=== PATIENT | male | born 1965 | race Caucasian/White ===

== ENCOUNTER → 2017-03-26 | Outpatient (CLI) | payer OTHER ==
[2017-03-26 11:19] LABS: BLOOD UREA NITROGEN 21 mg/dl (7-18); CALCIUM 7.8 mg/dl (8.5-10.1); CARBON DIOXIDE 24 mmol/L (21-32); CREATININE 1.19 mg/dl (0.60-1.40); GLUCOSE 113 mg/dl (70-99); POTASSIUM 4.2 mmol/L (3.5-5.1); SODIUM 134 mmol/L (136-145)
== END | disposition home or self-care (01) ==
LOC: C.LAB1850 09:44
PROVIDERS: ATTEND Physician Assistant
DX: I35.1 Nonrheumatic aortic (valve) insufficiency (principal)

== ENCOUNTER 2017-04-04 20:39 | Inpatient (IN) | payer OTHER ==
[~2017-04-04] VITALS: Ht 177.8 cm; Wt 84.5 kg
[2017-04-04 21:11] LABS: BASO % 0.2 %; BASO ABS # 0.03 K/uL (0-0.2); EOS % 0.1 %; EOS ABS # 0.01 K/uL (0-0.5); HEMATOCRIT 32.4 % (42-52); HEMOGLOBIN 10.9 g/dL (14.0-18.0); LYMPH % 4.9 %; LYMPH ABS # 0.87 K/uL (1.2-3.4); MEAN CELL VOLUME 90.8 fL (80-100); MEAN CORPUSCULAR HEMOGLOBIN 30.5 pg (25-34); MEAN CORPUSCULAR HGB CONC 33.6 g/dl (32-36); MEAN PLATELET VOLUME 10.4 fL (7.4-10.4); MONO % 3.6 %; MONO ABS # 0.64 K/uL (0.11-0.59); NEUT % 90.6 %; NEUT ABS # 16.27 K/uL (1.4-6.5); PLATELET COUNT 372 K/uL (130-400); RED CELL DISTRIBUTION WIDTH CV 14.1 % (11.5-14.5); RED CELL DISTRIBUTION WIDTH SD 46.3 fL (36.4-46.3); WHITE BLOOD COUNT 17.92 K/uL (4.8-10.8)
--- NOTE | 2017-04-04 21:15 | EMERGENCY ROOM VISIT NOTE ---
History Report prepared by Roman: Gonzalo Martínez Under the Supervision of: Dr. Melvin Cobos M.D. First contact with patient: 20:56 Chief Complaint: SHORTNESS OF BREATH Stated Complaint: SOB History of Present Illness The patient is a 51 year old male who presents to the Emergency Room with complaints of worsening shortness of breath that he has been experiencing for the past 1.5 days. His shortness of breath is present with exertion, and he noted one episode where he walked up the steps and became unusually short of breath yesterday. He did not become diaphoretic or nauseous. He also denies any associated fevers or cough. The patient states that he went to [employer] two weeks ago secondary to feeling generally unwell. On this visit he received a cardiac workup and was instructed to follow-up with a compressor station operator. He met with a compressor station operator 9 days ago who stated that he may need a valve repair or replacement, but he had time to decide what he wanted to do. Over the past couple of weeks he has been going through his normally daily routine without any issues. He is aware that he has had a murmur for many years, but has no history of respiratory disease or diabetes. 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 A total of 10 systems reviewed and were otherwise negative. Past Medical & Surgical Medical Problems: (1) Bicuspid aortic valve determined by imaging (2) Dilated aortic root (3) Murmur, cardiac Murmur, cardiac No prior history of cardiac disease. Social History Drug Use: none Marital Status: Housing Status: lives with significant other Occupation Status: employed Current/Historical Medications No Active Prescriptions or Reported Meds Allergies Coded Allergies: No Known Allergies (Unverified , 04/04/17) Physical Exam Vital Signs Date Time Temp Pulse Resp B/P (MAP) Pulse Ox O2 Delivery O2 Flow Rate FiO2 04/04/17 23:01 105 18 93/39 100 Nasal Cannula 2.0 04/04/17 22:31 94 22 83/35 100 Nasal Cannula 2.0 04/04/17 22:12 94 20 83/43 95 Nasal Cannula 2.0 04/04/17 21:36 95 20 93/42 97 Nasal Cannula 2.0 04/04/17 21:14 96 Nasal Cannula 2.0 04/04/17 20:51 98 04/04/17 20:49 96 Nasal Cannula 2.0 04/04/17 20:40 36.8 104 20 103/47 92 Room Air 04/04/17 20:40 92 Room Air Physical Exam GENERAL: Patient is in no acute distress. HEENT: No acute trauma, normocephalic atraumatic, mucous membranes moist, no nasal congestion, no scleral icterus. NECK: No stridor, no adenopathy, no meningismus, trachea is midline. LUNGS: Breath sounds are diminished bilaterally with bilateral crackles. HEART: There is a 3/6 systolic murmur with a regular rhythm. There is mild tachycardia. ABDOMEN: Soft, nontender, bowel sounds positive, no hernias, no peritonitis. EXTREMITIES: No cyanosis, Mild pedal edema bilaterally. Full range of motion of all the joints without pain or difficulty, no signs for acute trauma. NEUROLOGIC: Oriented x 3, no acute motor or sensory deficits, no focal weakness. SKIN: No rash, no jaundice, no diaphoresis. Medical Decision & Procedures ER Provider Diagnostic Interpretation: Radiology results as stated below per my review and radiologist interpretation: CHEST ONE VIEW PORTABLE HISTORY: EVALUATE RESPIRATORY DISTRESS.DYSPNEA COMPARISON: None. FINDINGS: The heart is enlarged. Small bilateral pleural effusions. Interstitial and vascular thickening most pronounced at the lung bases. This is consistent with mild pulmonary edema. No pneumothorax. IMPRESSION: Cardiomegaly with mild pulmonary edema and small bilateral pleural effusions. Electronically signed by: Hector Hinkle M.D. 04/04/2017 9:57 PM Dictated Date/Time: 04/04/2017 9:42 PM Laboratory Results Test 04/04/17 20:56 Erythrocyte Sedimentation Rate 53 mm/hr (0-14) Prothrombin Time 12.1 SECONDS (9.0-12.0) Prothromb Time International Ratio 1.2 (0.9-1.1) Activated Partial Thromboplast Time 27.3 SECONDS (21.0-31.0) Partial Thromboplastin Ratio 1.1 Pro-B-Type Natriuretic Peptide > 04713 pg/ml (0-900) Monoscreen NEG (NEG) Laboratory results reviewed by me. Medications Administered Medications (Trade) Dose Ordered Sig/Jj Route Start Time Stop Time Status Last Admin Dose Admin Furosemide (Lasix Inj) 20 mg NOW STAT IV 04/04/17 21:31 04/04/17 21:32 DC 04/04/17 21:40 20 MG Ceftriaxone Sodium 2000 mg/ Dextrose 70 ml @ 100 mls/hr ONE STAT IV 04/04/17 21:51 04/04/17 22:32 DC 04/04/17 22:08 100 MLS/HR Albumin Human (Albumin 25%) 25 gm NOW STAT IV 04/04/17 22:48 04/04/17 22:49 DC 04/04/17 22:48 12.5 GM Albumin Human (Albumin 25%) 12.5 gm STK-MED ONCE IV 04/04/17 22:30 04/04/17 22:31 DC 04/04/17 22:51 12.5 GM Vancomycin HCl 2500 mg/Sodium Chloride 550 ml @ 200 mls/hr NOW STAT IV 04/04/17 22:53 04/05/17 01:37 DC 04/04/17 23:41 200 MLS/HR ECG Indication: SOB/dyspnea Rate (beats per minute): 98 Rhythm: sinus rhythm Findings: 1st degree AV block, ST depression (lateral), other (Old anterior spetal infarct, no PVCs ) ED Course 2056: The patient was evaluated in room B4. A complete history and physical exam was performed. 2130: Ordered Lasix 20 mg IV. 2143: I discussed the case with Dr. Nazario - Cardiology. He suggests diaeresis for the patient slowly and administering antibiotic. 2150: Ordered Cetriaxone 70 mL @ 100 mL/hr IV. 7: I discussed the case with Dr. Faulkner - On-Call Manager Social Services. He states that the patient can be taken to the ICU to be evaluated. 8: I discussed the case with Dr. Hair - [facility] Hospitalist. He will evaluate the patient before he is taken to the floor. Medical Decision Differential Diagnosis includes; Heart failure, endocarditis, valvular insufficiency, valvular stenosis, flu- like illness, anemia, electrolyte imbalance, myocardial infarction. There is a significant leukocytosis at 17,000, this could be consistent with infection or with the stress of the situation. No worrisome anemia. Sedimentation rate was elevated at 50, this makes infection/inflammation more likely I suppose. No significant electrolyte abnormality or kidney failure. No hepatitis. No worrisome coagulopathy. BNP was quite elevated consistent with fluid overload. Chest film shows evidence for CHF. EKG showed a sinus rhythm with a first-degree AV block and a possible old anterior septal infarct. There was some ST depression in the lateral leads. Cardiac troponin was elevated consistent with possible cardiac injury. Blood cultures are pending. The patient presents dyspneic. He has a murmur on exam and had recently seen a compressor station operator for this murmur and there had been some discussion regarding valvular disease and the need for an operation. With him feeling poorly for a while as if he may have had the flu, I am concerned about the possibility of endocarditis. The patient received 2 g of IV ceftriaxone. He also received a small dose of IV Lasix to help with diuresis. I spoke with the on-call compressor station operator, I talked with the on-call potato inspector. I did speak with the on-call hospitalist as well. Patient is aware of his findings, case management has been involved. The patient will be brought into the hospital into the intensive care unit. He will likely eventually require transfer once more stable. Right now, he does not feel short of breath, he has no chest pain. His blood pressure is slightly low although he is asymptomatic. Medication Reconcilliation Current Medication List: was personally reviewed by me Blood Pressure Screening Patient's blood pressure: Low blood pressure Referred to potato inspector, hospitalist Consults Time Called: 2140 Consulting Physician: Dr. Nazario - Cardiology Returned Call: 2143 I discussed the case with Dr. Mansi Styles. He suggests diaeresis for the patient slowly and administering antibiotic. Additional Consults: Time Called: 2154 Consulted Physician: Dr. Faulkner - On-Call Intensivis Returned Call: 2156 Additional Comments: I discussed the case with Dr. Faulkner - On-Call Manager Social Services. He states that the patient can be taken to the ICU to be evaluated. Time Called: 2213 Consulted Physician: Dr. Laxmi ABRAHAM Hospitalist Returned Call: 2217 Additional Comments: I discussed the case with Dr. Laxmi ABRAHAM Hospitalist. He will evaluate the patient before he is taken to the floor. Impression Primary Impression: Congestive heart failure Additional Impression: Elevated troponin Critical Care I have personally spent greater than 40 minutes of critical care time in the direct management of this patient. This includes bedside care, interpretation of diagnostic studies, and testing, discussion with consultants, patient, and family members, and other required patient management activities. This 40 minutes is in excess of all separately billable procedures. Scribe Attestation The scribe's documentation has been prepared under my direction and personally reviewed by me in its entirety. I confirm that the note above accurately reflects all work, treatment, procedures, and medical decision making performed by me. Departure Information Dispostion Being Evaluated By Hospitalist (Manager Social Services, Dr. Faulkner ) Prescriptions No Active Prescriptions or Reported Meds Referrals No Doctor, Assigned (PCP) Patient Instructions My [facility] Problem Qualifiers
[2017-04-04 21:20] LABS: INR 1.2 (0.9-1.1); PTT PATIENT 27.3 SECONDS (21.0-31.0)
[2017-04-04 21:29] LABS: ALBUMIN 2.4 gm/dl (3.4-5.0); ALT/SGPT 66 U/L (12-78); BLOOD UREA NITROGEN 30 mg/dl (7-18); CALCIUM 7.8 mg/dl (8.5-10.1); CARBON DIOXIDE 23 mmol/L (21-32); CREATININE 1.31 mg/dl (0.60-1.40); GLUCOSE 146 mg/dl (70-99); POTASSIUM 4.5 mmol/L (3.5-5.1); SODIUM 130 mmol/L (136-145)
[2017-04-04] MEDS ORDERED: FUROSEMIDE 40 MG/4 ML VIAL IV STA (21:31)
[2017-04-04 21:38] LABS: ALKALINE PHOSPHATASE 89 U/L (45-117); AST/SGOT 40 U/L (15-37); TOTAL PROTEIN 7.1 gm/dl (6.4-8.2)
[2017-04-04] MEDS ORDERED: CEFTRIAXONE SOD INJ 2,000 MG in DEXTROSE 5% 50ML 50 ML IV STA (21:51)
--- NOTE | 2017-04-04 21:58 | DIAGNOSTIC IMAGING REPORT ---
CHEST ONE VIEW PORTABLE HISTORY: EVALUATE RESPIRATORY DISTRESS.DYSPNEA COMPARISON: None. FINDINGS: The heart is enlarged. Small bilateral pleural effusions. Interstitial and vascular thickening most pronounced at the lung bases. This is consistent with mild pulmonary edema. No pneumothorax. IMPRESSION: Cardiomegaly with mild pulmonary edema and small bilateral pleural effusions. Electronically signed by: Hector Hinkle M.D. 04/04/2017 9:57 PM Dictated Date/Time: 04/04/2017 9:42 PM
[2017-04-04] MEDS ORDERED: ALBUMIN HUMAN 25% 12.5 GM/50 ML VIAL IV ONE (22:30)
--- NOTE | 2017-04-04 22:32 | History and Physical ---
History & Physical Date & Time of Service: Apr 04, 2017 at 22:21 Chief Complaint: SOB Primary Care Physician: No Doctor, Assigned History of Present Illness Source: patient, family 51 year old males presented to ED today with acute onset of dyspnea. Patient has been feeling unwell for nearly 6 weeks now - namely low energy/ weakness and a cough. This was initially attributed to a cold that others in the household were also experiencing. However, unlike his family, the patient did not feel better with time, and went to see urgent care ~3 weeks ago, at which time a murmur was appreciated. Patient was referred for further work up, and cardiology was consulted after an echocardiogram revealed: severely dilated left ventricle, a functionally bicuspid aortic valve with aortic stenosis and severe aortic regurgitation, and aortic root dilation. Patient saw editor at large , Dr. Gomez for a cardiology consultation, during which cardiac catheterization and EDDY for staging for possible aortic valve replacement was discussed. The patient was overwhelmed with the discussion and declined further evaluation until he was able to settle things at work. He was agreeable to CTA chest, but this has not been performed. As patient was asymptomatic at the time , follow up appointment was arranged for 1 month for further discussion. This afternoon, patient became acutely dyspneic, and came to the ED for evaluation. He describes his symptoms as an inability to catch his breath. He denies concurrent headache, dizziness, change in vision, chest pain, palpitations, heart racing, nausea or diaphoresis. He also denies URTI symptoms and said his cough has not been bothering him over the last few days. He does note that he has felt progressively weaker/fatigued with decreased activity tolerance, he has had diminished appetite for weeks (although he is able to tolerate PO intake), and that he has had leg swelling for the past week, as well as orthopnea. He denies fevers or chills, abdominal pain or vomiting, urinary symptoms or changes in bowel habits. He has not had any falls, no trauma to the chest, no recent travel, denies illicit drug use, and does not use oxygen at baseline. ROS is unremarkable except as noted above. Past Medical/Surgical History Medical Problems: (1) Murmur, cardiac Status: Chronic Family History Father CA with CABG x2 at age 50s Social History Smoking Status: Never Smoker Smokeless Tobacco Use: No Alcohol Use: none Drug Use: none Marital Status: Housing status: lives with family Occupational Status: employed Immunizations History of Influenza Vaccine: Unknown History of Tetanus Vaccine?: Unknown History of Pneumococcal: Unknown History of Hepatitis B Vaccine: Unknown Multi-Drug Resistant Organisms History of MDRO: No Allergies Coded Allergies: No Known Allergies (Unverified , 04/04/17) Home Medications No Active Prescriptions or Reported Meds Physical Exam Vital Signs Date Time Temp Pulse Resp B/P (MAP) Pulse Ox O2 Delivery O2 Flow Rate FiO2 04/04/17 22:12 94 20 83/43 95 Nasal Cannula 2.0 04/04/17 21:36 95 20 93/42 97 Nasal Cannula 2.0 04/04/17 21:14 96 Nasal Cannula 2.0 04/04/17 20:51 98 04/04/17 20:49 96 Nasal Cannula 2.0 04/04/17 20:40 36.8 104 20 103/47 92 Room Air 04/04/17 20:40 92 Room Air General Appearance: WD/WN, + mild distress Head: normocephalic, atraumatic Eyes: normal inspection ENT: hearing grossly normal, pharynx normal, + pertinent finding (NC in situ. Dry mucous membranes) Neck: supple, no adenopathy, + JVD Respiratory/Chest: no accessory muscle use, + respiratory distress (mild, although patient denies discomfort with O2), + decreased breath sounds ( bibasilar), + crackles, + pertinent finding (shallow breathing) Cardiovascular: regular rate, rhythm, normal peripheral pulses, + tachycardia, + systolic murmur Abdomen/GI: normal bowel sounds, non tender, soft Back: no CVA tenderness Extremities/Musculoskelatal: no calf tenderness, + pedal edema, + swelling (+1- 2 pitting edema) Neurologic/Psych: alert, normal mood/affect, oriented x 3 Skin: normal color, warm/dry, no rash Diagnostics Laboratory Results Results Past 24 Hours Test 04/04/17 20:56 Range/Units White Blood Count 17.92 4.8-10.8 K/uL Red Blood Count 3.57 4.7-6.1 M/uL Hemoglobin 10.9 14.0-18.0 g/dL Hematocrit 32.4 42-52 % Mean Corpuscular Volume 90.8 80-100 fL Mean Corpuscular Hemoglobin 30.5 25-34 pg Mean Corpuscular Hemoglobin Concent 33.6 32-36 g/dl Platelet Count 372 130-400 K/uL Mean Platelet Volume 10.4 7.4-10.4 fL Neutrophils (%) (Auto) 90.6 % Lymphocytes (%) (Auto) 4.9 % Monocytes (%) (Auto) 3.6 % Eosinophils (%) (Auto) 0.1 % Basophils (%) (Auto) 0.2 % Neutrophils # (Auto) 16.27 1.4-6.5 K/uL Lymphocytes # (Auto) 0.87 1.2-3.4 K/uL Monocytes # (Auto) 0.64 0.11-0.59 K/uL Eosinophils # (Auto) 0.01 0-0.5 K/uL Basophils # (Auto) 0.03 0-0.2 K/uL RDW Standard Deviation 46.3 36.4-46.3 fL RDW Coefficient of Variation 14.1 11.5-14.5 % Immature Granulocyte % (Auto) 0.6 % Immature Granulocyte # (Auto) 0.10 0.00-0.02 K/uL Erythrocyte Sedimentation Rate 53 0-14 mm/hr Prothrombin Time 12.1 9.0-12.0 SECONDS Prothromb Time International Ratio 1.2 0.9-1.1 Activated Partial Thromboplast Time 27.3 21.0-31.0 SECONDS Partial Thromboplastin Ratio 1.1 Sodium Level 130 136-145 mmol/L Potassium Level 4.5 3.5-5.1 mmol/L Chloride Level 99 98-107 mmol/L Carbon Dioxide Level 23 21-32 mmol/L Anion Gap 8.0 3-11 mmol/L Blood Urea Nitrogen 30 7-18 mg/dl Creatinine 1.31 0.60-1.40 mg/dl Est Creatinine Clear Calc Drug Dose 72.9 ml/min Estimated GFR () 71.5 Estimated GFR (Non- 61.7 BUN/Creatinine Ratio 22.6 10-20 Random Glucose 146 70-99 mg/dl Calcium Level 7.8 8.5-10.1 mg/dl Magnesium Level 2.5 1.8-2.4 mg/dl Total Bilirubin 0.9 0.2-1 mg/dl Aspartate Amino Transf (AST/SGOT) 40 15-37 U/L Alanine Aminotransferase (ALT/SGPT) 66 12-78 U/L Alkaline Phosphatase 89 45-117 U/L Troponin I 1.060 0-0.045 ng/ml Pro-B-Type Natriuretic Peptide > 72804 0-900 pg/ml Total Protein 7.1 6.4-8.2 gm/dl Albumin 2.4 3.4-5.0 gm/dl Globulin 4.7 2.5-4.0 gm/dl Albumin/Globulin Ratio 0.5 0.9-2 Monoscreen NEG NEG Microbiology Results 04/04/17 Blood Culture, Received Pending 04/04/17 Blood Culture, Received Pending Diagnostic Radiology CHEST ONE VIEW PORTABLE HISTORY: EVALUATE RESPIRATORY DISTRESS.DYSPNEA COMPARISON: None. FINDINGS: The heart is enlarged. Small bilateral pleural effusions. Interstitial and vascular thickening most pronounced at the lung bases. This is consistent with mild pulmonary edema. No pneumothorax. IMPRESSION: Cardiomegaly with mild pulmonary edema and small bilateral pleural effusions. CT Dissection work up Stat rad: No thoracic aortic dissection or aneurysm, no PE, moderate bilateral pleural effusions with mild pulmonary congestion, trace pericardial effusion EKG Sinus rhythm with 1st degree A-V block Left axis deviation Anteroseptal infarct , age undetermined Abnormal ECG HR 98, QTc 456 Impression Assessment and Plan 51 year old male with functionally bicuspid aortic valve with severe aortic regurgitation and aortic root aneurysm admitted for dyspnea and pulmonary edema , and likely secondary to acute decompensated heart failure in the setting of known Acute congested heart failure with hypoxia - as noted on imaging and indicated by BNP >35,000 - Received IV furosemide 20mg in ED, but diuresis worsened hypotension. Subsequently given 4 bags of 12.5mg albumin to assist with gentle diuresis while maintaining BP - O2 via nasal cannula, wean as tolerated to maintain sats >94% - Cardiology consulted - Daily weights, I/Os, low salt diet once no longer NPO - NO nitro given patient preload dependent Concern for sepsis secondary to possible endocarditis given patient has murmur, is hypotensive - Trace blood cultures - Vancomycin, ceftriaxone, levofloxacin - Cardiology consulted - Flu swabs ordered - Patient NPO for possible cardiac procedure - Trend CBC Elevated troponin - Serial troponin - Heparin drip started upon rule out of dissection - ECHO ordered - EKG PRN chest pain GERD ppx - Pantoprazole VTE ppx - SCDs - Heparin as above Attending addendum: I have physically seen this patient, have supervised the medical residents activities, and agree with the H&P unless as otherwise noted. Assessment and Plan: Acute on Chronic CHF with hypoxia/SBE/elevated troponin-- The patient will be admitted to the intensive care unit. Placed on vancomycin IV, ceftriaxone IV and Levaquin IV. Follow blood cultures and sensitivities Heparin drip standard concentration without bolus per protocol Order 2D echocardiogram with Dopplers Consult cardiology Patient may require a EDDY Patient may require pressors if return of hypotension. Follow serial laboratories including CBC with differential, chemistry profile, PT/PTT, cardiac enzymes. Remainder of care per ICU team Level of Care Critical Care Advanced Directives Existing Advance Directive: No Existing Living Will: No Existing Power of Chocolate Maker: No Existing Health Care Proxy: Yes (, Olimpia) Resuscitation Status FULL RESUSCITATION VTE Prophylaxis VTE Risk Assessment Done? Y/N: Yes Risk Level: Moderate Given or contraindicated: Other Anticoagulation (Heparin drip), SCD's Note Total Time: Critical Care 30 - 74 minutes Resident Tracking Resident Involvement: Resident Care Provided Care Provided: Adult Hospital Medicine
[2017-04-04] MEDS ORDERED: ALBUMIN HUMAN 25% 12.5 GM/50 ML VIAL IV STA ×2 (22:48→23:28)
[2017-04-04] MEDS ORDERED: VANCOMYCIN INJ 1,000 MG in SODIUM CHLORIDE 0.9% 250ML 250 ML IV STA (22:49)
[2017-04-04] MEDS ORDERED: VANCOMYCIN INJ 2,500 MG in SODIUM CHLORIDE 0.9% 500ML 500 ML IV STA (22:53)
[2017-04-04] MEDS ORDERED: OPTIRAY 320 IV PRN (23:00)
[2017-04-04] MEDS ORDERED: VANCOMYCIN CONSULT ACTIVE PRN (23:00)
[2017-04-04] MEDS ORDERED: LEVAQUIN 750MG / 150ML D5W IV STA (23:28)
[2017-04-04] MEDS ORDERED: ACETAMINOPHEN 325 MG TAB PO PRN (23:30)
[2017-04-04] MEDS ORDERED: ICU PROTOCOL FOR HYPERGLYCEMIA PRN (23:30)
[2017-04-04] MEDS ORDERED: NITROGLYCERIN 0.4 MG SL PER TAB CHARGE SL PRN (23:30)
[2017-04-04] MEDS ORDERED: MoRPHine SULFATE 2 MG/ML CARP IV PRN (23:30)
--- NOTE | 2017-04-04 23:31 | Critical Care Consultation ---
Critical Care Consultation Date of Consultation: Apr 04, 2017. Attending Physician: Reason for Consultation: 51-year-old male with acute shortness of breath, pulmonary edema, and likely acute decompensated heart failure in the setting of known bicuspid aortic valve with severe aortic regurgitation and thoracic aortic aneurysm. History of Present Illness Patient is a 51-year-old male presenting to the ER with worsening shortness of breath that developed over the last few days, but acutely worsened today. Approximately 3 weeks ago, he had had a dry cough which apparently had been shared by family members in his house over the past week or so. He was seen at an urgent care and subsequently directed to a primary care provider for further evaluation of murmur heard on exam. He was seen in the outpatient and subsequently referred to cardiology after an echocardiogram was performed. Per outpatient records, the patient had an echocardiogram which was concerning for severely dilated LEFT ventricle as well as a bicuspid aortic valve, severe aortic regurgitation, aortic stenosis, and aortic root dilation. During that visit, the discussion for cardiac catheterization as well as EDDY for staging for likely aortic valve replacement was discussed with the patient. At that point, he seemed to be very concerned and did not tolerate the discussion well. Actually, at one point, he became very diaphoretic during the discussion. He had declined further evaluation at this point until he was able to settle things at work. He was agreeable to CTA of the chest, but this had not been performed. At the time of evaluation, the patient was essentially asymptomatic. He had had no shortness of breath, orthopnea, dyspnea on exertion , peripheral edema, cough, amongst others. In the emergency department today, the patient was found to have a slight leukocytosis of 13,000. His troponin is elevated at greater than 1. BNP was greater than 35,000. He denies any fevers. He reports no prodrome of upper respiratory infections recently. There has been no recent tick bites. He complains of shortness of breath alone. He denies any headaches, dizziness, lightheadedness, nausea, vomiting, chest pain, palpitations, or abdominal discomfort. His reports that he has lost several pounds over the last few months. He does admit to poor diet. Over the past few days, the patient has had to prop himself up with approximately 2-4 pillows to tolerate sleeping at night secondary to shortness of breath. In addition, over the past few days, he has developed significant swelling at his bilateral lower extremities. The patient has never experienced any the symptoms previously. The patient denies any illicit drug use, specifically, no intravenous drug use. He denies any alcohol use. He lives at home with family and has 2 jobs which keep him occupied. It should be noted that prior to the past few weeks, the patient has had not had regular doctor visits. Past Medical/Surgical History Medical Problems: (1) Aortic insufficiency (2) Bicuspid aortic valve determined by imaging (3) Dilated aortic root (4) Murmur, cardiac Family History Coronary artery disease Congestive heart failure Social History Smoking Status: Never Smoker Smokeless Tobacco Use: No Alcohol Use: none Drug Use: none Marital Status: Housing Status: lives with significant other Occupation Status: employed Allergies Coded Allergies: No Known Allergies (Unverified , 04/04/17) Home Medications No Active Prescriptions or Reported Meds Current Inpatient Medications Current Inpatient Medications Medications (Trade) Dose Ordered Sig/Jj Route Start Time Stop Time Status Last Admin Dose Admin Vancomycin HCl 1000 mg/Sodium Chloride 270 ml @ 125 mls/hr Q12 IV 04/05/17 09:00 05/17/17 08:59 UNV Miscellaneous Information (Consult) 1 ea UD PRN N/A 04/04/17 23:00 05/04/17 22:59 Ioversol (Optiray 320) 100 ml UD PRN IV 04/04/17 23:00 04/08/17 22:59 Vancomycin HCl 2500 mg/Sodium Chloride 550 ml @ 200 mls/hr NOW STAT IV 04/04/17 22:53 04/05/17 01:37 Review of Systems A complete 10-point Review of Systems was discussed with the patient, with pertinent positives and negatives listed in the History of Present Illness. All remaining Review of Systems questions can be considered negative unless otherwise specified. Physical Exam Date Time Temp Pulse Resp B/P (MAP) Pulse Ox O2 Delivery O2 Flow Rate FiO2 04/04/17 23:01 105 18 93/39 100 Nasal Cannula 2.0 04/04/17 22:31 94 22 83/35 100 Nasal Cannula 2.0 04/04/17 22:12 94 20 83/43 95 Nasal Cannula 2.0 04/04/17 21:36 95 20 93/42 97 Nasal Cannula 2.0 04/04/17 21:14 96 Nasal Cannula 2.0 04/04/17 20:51 98 04/04/17 20:49 96 Nasal Cannula 2.0 04/04/17 20:40 36.8 104 20 103/47 92 Room Air 04/04/17 20:40 92 Room Air VITAL SIGNS - Vital signs and nursing notes were reviewed. GENERAL - 51-year-old male appearing his stated age who is in no acute distress. Communicates well with provider and answers questions appropriately. HEAD - NC/AT. EYES - PERRL with EOMI bilaterally. Sclera anicteric. Palpebral conjunctiva pink and moist with no injection noted. EARS - No deformities of external structures noted on gross examination bilaterally. NOSE - Midline and without cyanosis. MOUTH/OROPHARYNX - Without perioral cyanosis. Buccal mucosa pink and moist and without leukoplakia. Tongue midline with equal elevation of palate bilaterally. No tonsillar hypertrophy, erythema, or exudates noted. Poor dentition noted. NECK - Neck with FROM. Supple to palpation. LUNGS - Chest wall symmetric without accessory muscle use, intercostals retractions, or central cyanosis. Normal vesicular breath sounds CTA B/L. No wheezes, rales, or rhonchi appreciated. CARDIAC - RRR with S1/S2. Moderate Grade 3/6 systolic ejection murmur noted to the RIGHT sternal boarder radiating to the aortic point. Mild diastolic murmur noted to the LEFT sternal boarder. No rubs or gallops appreciated. No reproducible tenderness to palpation appreciated over the anterior chest wall. ABDOMEN - Abdominal contour flat and without pulsations or visible masses. BS normoactive all four quadrants. No tenderness, palpable masses, hepatosplenomegaly, or ascites noted. EXTREMITIES - No clubbing or peripheral cyanosis. Moderate bilateral peripheral edema noted to the lower extremities from the knees down. +4/5 radial and dorsalis pedis pulses palpated throughout. +5/5 strength noted in UE/LE bilaterally. NEUROLOGIC - Cranial nerves II through XII grossly intact. Sensory intact to light touch throughout. PSYCH - A&Ox3 and cooperates fully with examiner. Pt is very pleasant and interacts well with examiner. Laboratory Results Last 24 Hours Test 04/04/17 20:56 White Blood Count 17.92 K/uL Red Blood Count 3.57 M/uL Hemoglobin 10.9 g/dL Hematocrit 32.4 % Mean Corpuscular Volume 90.8 fL Mean Corpuscular Hemoglobin 30.5 pg Mean Corpuscular Hemoglobin Concent 33.6 g/dl Platelet Count 372 K/uL Mean Platelet Volume 10.4 fL Neutrophils (%) (Auto) 90.6 % Lymphocytes (%) (Auto) 4.9 % Monocytes (%) (Auto) 3.6 % Eosinophils (%) (Auto) 0.1 % Basophils (%) (Auto) 0.2 % Neutrophils # (Auto) 16.27 K/uL Lymphocytes # (Auto) 0.87 K/uL Monocytes # (Auto) 0.64 K/uL Eosinophils # (Auto) 0.01 K/uL Basophils # (Auto) 0.03 K/uL RDW Standard Deviation 46.3 fL RDW Coefficient of Variation 14.1 % Immature Granulocyte % (Auto) 0.6 % Immature Granulocyte # (Auto) 0.10 K/uL Erythrocyte Sedimentation Rate 53 mm/hr Prothrombin Time 12.1 SECONDS Prothromb Time International Ratio 1.2 Activated Partial Thromboplast Time 27.3 SECONDS Partial Thromboplastin Ratio 1.1 Sodium Level 130 mmol/L Potassium Level 4.5 mmol/L Chloride Level 99 mmol/L Carbon Dioxide Level 23 mmol/L Anion Gap 8.0 mmol/L Blood Urea Nitrogen 30 mg/dl Creatinine 1.31 mg/dl Est Creatinine Clear Calc Drug Dose 72.9 ml/min Estimated GFR () 71.5 Estimated GFR (Non- 61.7 BUN/Creatinine Ratio 22.6 Random Glucose 146 mg/dl Calcium Level 7.8 mg/dl Magnesium Level 2.5 mg/dl Total Bilirubin 0.9 mg/dl Aspartate Amino Transf (AST/SGOT) 40 U/L Alanine Aminotransferase (ALT/SGPT) 66 U/L Alkaline Phosphatase 89 U/L Troponin I 1.060 ng/ml Pro-B-Type Natriuretic Peptide > 03738 pg/ml Total Protein 7.1 gm/dl Albumin 2.4 gm/dl Globulin 4.7 gm/dl Albumin/Globulin Ratio 0.5 Monoscreen NEG Diagnostic Results Radiological imaging and reports were reviewed by myself. Radiologist's Interpretation as follows: CHEST ONE VIEW PORTABLE HISTORY: EVALUATE RESPIRATORY DISTRESS.DYSPNEA COMPARISON: None. FINDINGS: The heart is enlarged. Small bilateral pleural effusions. Interstitial and vascular thickening most pronounced at the lung bases. This is consistent with mild pulmonary edema. No pneumothorax. IMPRESSION: Cardiomegaly with mild pulmonary edema and small bilateral pleural effusions. Radiological imaging and reports were reviewed by myself. Radiologist's Interpretation per [facility] as follows: CTA CHEST: No thoracic aortic dissection or aneurysm. No evidence of pulmonary embolus. Moderate bilateral pleural effusions with mild pulmonary vascular congestion. Trace pericardial effusion. Subcentimeter mediastinal and hilar lymph nodes, likely reactive. Hepatic steatosis. No acute osseous abnormality. Assessment & Plan (1) Congestive heart failure (2) Aortic insufficiency (3) Dilated aortic root (4) Bicuspid aortic valve determined by imaging (5) Murmur, cardiac Reason Critically Ill: 51-year-old male with acute shortness of breath, pulmonary edema, and likely acute decompensated heart failure in the setting of known bicuspid aortic valve with severe aortic regurgitation and thoracic aortic aneurysm. Neuro - * CAM ICU: NEGATIVE Cardiac - * Acute Decompensated Heart Failure with CHF: * Patient with known h/o Bicuspid versus fusion of the LEFT and RIGHT coronary cusps with sever aortic regurgitation. * Patient declined EDDY and Cath at the suggestion of cardiology during recent visit with the idea of returning in one month for further planning. At that time , the patient had not been experiencing any of these symptoms. He has acutely decompensated over the past few days and developed SOB at rest today only which prompted his visit to the ED. His symptoms suggest worsening valvular disease versus acute insult. In this regard, the patient warrants Echo for evaluation of aortic valve and possible underlying pathologies (i.e. ruptured cord/leaflet , vegetative lesion, endocarditis, etc). * CTA was ordered to assess aortic root 2/2 concerns of dilation on prior echo. CTA shows no dissection or dilatation otherwise. Small amount of pericardial fluid noted. * In regards to the pulmonary congestion, the patient had received IV Lasix in the ED for gentle diuresis at the recommendation of cardiology. This is certainly concerning as this patient is volume dependent at this time 2/2 valvular disease. His BP did decrease in the ED. He was provided albumin which did seem to help temporize this hypotension. * TTE was ordered for tomorrow AM. * Cardiology consultation placed - they had spoken with ED Physician in regards to the patient this evening. * EKG shows 1' AV block. No acute ST/T-wave abnormalities. * Vasoactive mediations for support of MAP to help maximize cardiac output. * ECHO (03/23/2017): * 1. Severely dilated left ventricle with normal systolic function. EF 55-60%. No regional wall motion abnormalities. No left ventricular hypertrophy. No significant diastolic dysfunction. * 2. Aortic valve appears functionally bicuspid with possible fusion of right and left coronary cusp. There is dense echodensity/calcification (nonmobile) involving the right coronary cusp. * 3. Severe aortic regurgitation. Mild aortic stenosis. * 4. Moderately dilated aortic root. * 5. No prior studies available for comparison. * Elevated Troponin: * While this is likely 2/2 his structure pathology versus coronary disease, definitive evaluation of coronary vessels may be warranted per cardiology recommendation. * Agree with Heparin gtt at this point. * Dilated Aortic Root: * CTA demonstrates no acute dissection. Respiratory - * Shortness of breath at rest: * Secondary to pulmonary edema. * Responded well to NC O2. * Consider BiPAP as tolerated and as BP tolerates. * CXR - CHF/Pulmonary edema. Cardiomegaly. * Ordered CTA for evaluation of aortic root. No PE noted. GI - * NPO in anticipation for possible cath tomorrow. RENAL/LYTES - * No acute electrolyte abnormality. * Will trend. * Will hold on IVF 2/2 CHF and valvular disease. - * No need for Cruz at this time. * Will place if needed for strict I&Os ENDO - * No h/o DM or Thyroid disease. * ISS/gtt per protocol. HEME - * Stable H&H - monitor. ID - * Cover for Endocarditis in the setting of worsening valvular heart disease: * Evaluation with echo/EDDY. * ESR elevated. * Check ProCal/Lactic * Blood cultures. * Vanc, Rocephin, Levaquin (pulm coverage). * Will continue in the acute phase until Echo obtained. * Will add ASO titer, Lyme Titer, Coxsackie titers for possible infection sources. LINES/IV ACCESS - * PIVs intact. DVT PROPHYLAXIS - * Heparin gtt. * Will add SCDs after evaluation of lower extremity edema with US. I have personally spent 45 minutes of critical care time in the direct management of this patient. This is a life/limb threatening event. This includes time spent evaluating patient, direct bedside care, chart review, placing orders, interpretation of diagnostic studies, discussion with consultants, patient, and family members, as well as other required patient management activities. This time is exclusive of all separately billable procedures, and teaching time and separate from and in addition to any other critical care service time. Thank you for this consultation allow us to be part of this patient's care. Please refer to my attending physician's documentation for any further recommendations.
[2017-04-05] VITALS (28 sets, daily range): BP systolic 83–111; BP diastolic 29–46; PULSE 88–103; TEMP 36.4–36.5; O2SAT 92–97; Ht 177.8 cm; Wt 84.5 kg
[2017-04-05] MEDS ORDERED: ICU PROTOCOL FOR HYPERGLYCEMIA PRN (01:00)
[2017-04-05] MEDS ORDERED: LEVOFLOXACIN / D5W 750 MG in PREMIXED IN D5W 150 ML IV SCH (01:00)
[2017-04-05] MEDS ORDERED: ALBUMIN HUMAN 25% 12.5 GM/50 ML VIAL IV ONE (01:00)
[2017-04-05] MEDS ORDERED: NOREPINEPHRINE BIT INJ 8 MG in DEXTROSE 5% 500ML 500 ML IV PRN (03:28)
[2017-04-05] MEDS ORDERED: HEPARIN SOD 5000 UNIT/0.5 ML CARP SQ SCH (04:00)
[2017-04-05] MEDS ORDERED: HEPARIN 25,000 UNIT/500ML D5W 500 ML IV PRN (05:00)
--- NOTE | 2017-04-05 05:29 | Procedure Note ---
Procedure Note Procedure Date Apr 05, 2017. (Alex Cifuentes PA-C) Central Line Procedure time out: side/site verified, patient ID confirmed, sterile procedure used Consent obtained: written Time of procedure: 03:00 Performed by: physician dry molder Indications: central drug admin., long-term access, CVP monitoring Prep: chlorhexadine prep, sterile drape, sterile procedures used Anesthesia: lidocaine 1% without epi Volume anesthetic (ml's): 3 Central line lumen: triple Central line location: internal jugular (L) Additional details: percutaneous placement, ultrasound guidance, Selinger technique used, line sutured, good blood return CXR: appropriate position, no pneumothorax Complications: none Patient tolerated procedure: well Post-procedure vital signs: reviewed and stable Comments: Procedure: Central Line Placement Attending: Dr. Faulkner APC: Alex Cifuentes PA-C Indication: Central Drug Administration, Poor Venous Access, Multiple Lab Draws Necessary, etc. Anesthesia: Lidocaine 1% Consent was signed and placed on the chart prior to procedure. Indication, risks , and benefits were explained at length. A time-out was completed verifying correct patient, procedure, site, positioning , and implants(s) or special equipment if applicable. Patient's LEFT Neck was cleansed and draped in the typical sterile fashion using Chloraprep. The Internal Jugular Vein and Carotid Artery were identified using ultrasound. The superficial tissue was anesthetized using 3 cc of 1% lidocaine without epinephrine under direct visualization with the ultrasound. After adequate anesthetization was achieved, the Internal Jugular vein was cannulated under direct ultrasound guidance using an introducer needle on a syringe. Good venous blood return was maintained prior to removal of syringe from introducer needle. Using Seldinger Technique, a guide wire was advanced through the introducer needle without resistance. The introducer needle was removed and ultrasound images were obtained of the guide wire within the Internal Jugular Vein and saved to the patient's medical record. A small incision was made in penetrating fashion at the guide wire insertion site utilizing an 11 blade scalpel. The dilator was advanced to the vessel without resistance. The dilator was exchanged for the triple lumen catheter which was advanced into the vessel without resistance. The guide wire was removed intact from the catheter without issue. Claves were placed on each catheter tip with confirmation of good blood flow from each lumen. The catheter was placed at 18 cm and sutured in place. BioPatch was applied to the catheter and a sterile Tegaderm dressing was applied over the catheter with careful attention to sterility. Patient tolerated procedure well. No immediate complications were met. Post procedure x-ray was completed, placement was appropriate and no pneumothorax was noted. Images obtained are saved for permanent record Procedural Ultrasound Guidance: Procedure Date: 04/05/2017 Indication: Vasoactive medication administration. Attending: Dr. Faulkner APC: Alex Cifuentes PA-C Artery AND Vein visualized: YES Compressible Vein: YES Guidewire or Short Catheter seen in vein prior to dilation: YES Line confirmed in Vein with ultrasound: YES Images obtained are saved for permanent record. (Alex Cifuentes PA-C) Comments: I was present and I assisted the entire time during the above mentioned procedure (Jos Faulkner MD)
--- NOTE | 2017-04-05 06:27 | DIAGNOSTIC IMAGING REPORT ---
ULTRASOUND VENOUS DOPPLER LWR EXT BILA CLINICAL HISTORY: Bilateral lower extremity edema COMPARISON STUDY: No previous studies for comparison. FINDINGS: Real-time and color flow Doppler imaging were performed. Flow was seen within the femoral, popliteal and calf veins with no intraluminal thrombus demonstrated. The saphenous vein is patent. There is a complex left popliteal cyst measuring 55 x 18 x 49 mm. IMPRESSION: 1. No evidence of lower extremity DVT 2. Complex left popliteal cyst Electronically signed by: Juve Jenkins M.D. 04/05/2017 6:25 AM Dictated Date/Time: 04/05/2017 6:25 AM
[2017-04-05 06:33] LABS: BASO % 0.2 %; BASO ABS # 0.03 K/uL (0-0.2); EOS % 0.1 %; EOS ABS # 0.02 K/uL (0-0.5); HEMATOCRIT 27.2 % (42-52); IG# 0.08 K/uL (0.00-0.02); LYMPH % 5.5 %; LYMPH ABS # 1.02 K/uL (1.2-3.4); MEAN CELL VOLUME 90.7 fL (80-100); MEAN CORPUSCULAR HGB CONC 33.1 g/dl (32-36); MONO % 5.1 %; MONO ABS # 0.93 K/uL (0.11-0.59); NEUT % 88.7 %; NEUT ABS # 16.32 K/uL (1.4-6.5); PLATELET COUNT 305 K/uL (130-400); RED CELL DISTRIBUTION WIDTH CV 14.2 % (11.5-14.5); RED CELL DISTRIBUTION WIDTH SD 46.4 fL (36.4-46.3)
--- NOTE | 2017-04-05 06:34 | DIAGNOSTIC IMAGING REPORT ---
CHEST ONE VIEW PORTABLE CLINICAL HISTORY: LINE VERIFICATIOIN tube position COMPARISON STUDY: 04/04/2017 FINDINGS: Central catheter placed at the juncture of the superior vena cava. No evidence for pneumothorax. All remaining findings are similar. The heart remains enlarged. No evidence of pneumothorax. IMPRESSION: Central catheter placed in the superior vena cava. No evidence for pneumothorax. The above report was generated using voice recognition software. It may contain grammatical, syntax or spelling errors. Electronically signed by: Cheko Lee M.D. 04/05/2017 6:33 AM Dictated Date/Time: 04/05/2017 6:32 AM
--- NOTE | 2017-04-05 06:40 | DIAGNOSTIC IMAGING REPORT ---
Study: CT angiography of chest HISTORY: Chest pain. Dyspnea. FINDINGS: The thoracic aorta shows minimal atherosclerotic change. No evidence for aneurysm or dissection. The pulmonary vasculature enhances appropriately. No evidence for pulmonary embolus. The basilar parenchymal infiltrative and atelectatic change. Bibasilar pleural effusions. IMPRESSION: 1. Negative thoracic aorta. 2. Bibasilar parenchymal infiltrative change with bibasilar atelectatic and effusion-type change as well. 3. No evidence for pulmonary embolus. Electronically signed by: Cheko Lee M.D. 04/05/2017 6:38 AM Dictated Date/Time: 04/05/2017 6:35 AM
[2017-04-05 07:07] LABS: ALBUMIN 2.2 gm/dl (3.4-5.0); CALCIUM 7.2 mg/dl (8.5-10.1); CREATININE 1.16 mg/dl (0.60-1.40); POTASSIUM 4.3 mmol/L (3.5-5.1)
[2017-04-05 07:15] LABS: TOTAL PROTEIN 5.8 gm/dl (6.4-8.2)
[2017-04-05 07:45] LABS: INFLUENZA B ANTIGEN Neg for Influ B (NEG)
--- NOTE | 2017-04-05 08:47 | Discharge Summary ---
Discharge Summary Date of Service Apr 05, 2017. Discharge Summary Admission Date: Apr 04, 2017 at 23:34 Discharge Date: Apr 05, 2017 Discharge Disposition: Acute care facility Principal Diagnosis: Acutely decompensated dilated cardiomyopathy Problems/Secondary Diagnoses: Bicuspid aortic valve with stenosis and regurgitation Leukocytosis, treating for possible endocarditis Procedures: none Consultations: Critical care Cardiology Medication Reconciliation Medication Profile: No Active Prescriptions or Reported Meds Discharge Exam Patient resting comfortably in the ICU, reports his breathing is fine, no chest pain or pressure. Nothing to eat. Discussed the case with Dr. Gomez who already talked with Dr. Felipe, cardiovascular surgeon at [facility], and we will plan to fly the patient out to [place]. Patient's updated on the phone by Dr. Gomez. Review of Systems: Constitutional: + weakness, + fatigue, No fever, No chills, No sweats, No weight loss, No problem reported Eyes: No worsening of vision, No eye pain, No redness, No discharge, No diplopia, No problem reported ENT: No hearing loss, No unusual epistaxis, No nasal symptoms, No sore throat, No tinnitus, No dental problems, No trouble swallowing, No problem reported Respiratory: + dyspnea on exertion, No cough, No sputum, No wheezing, No shortness of breath, No dyspnea at rest, No hemoptysis, No problem reported Cardiovascular: No chest pain, No orthopnea, No PND, No edema, No claudication, No palpitations, No problem reported Abdomen: No pain, No nausea, No vomiting, No diarrhea, No constipation, No GI bleeding, No problem reported Musculoskeletal: No joint pain, No muscle pain, No swelling, No calf pain, No problem reported Genitourinary - Male: No hematuria, No dysuria, No urinary frequency, No urinary urgency Neurologic: No memory loss, No paralysis, No weakness, No numbness/tingling , No vertigo, No balance problems, No problem reported Psychiatric: No depression symptoms, No anhedonism, No anxiety, No insomnia , No substance abuse, No problem reported Endocrine: No fatigue, No excessive thirst, No excessive urination, No problem reported Hematologic / Lymphatic: No abnormal bleeding/bruising, No clotting problems , No swollen lymph nodes, No night sweats, No problem reported Integumentary: No rash, No itch, No new/changing skin lesions, No color change, No bleeding, No problem reported Physical Exam: General Appearance: no apparent distress, + thin Eyes: normal inspection, EOMI, sclerae normal ENT: normal ENT inspection, hearing grossly normal, pharynx normal Neck: supple, no adenopathy, no JVD, trachea midline Respiratory/Chest: chest non-tender, no respiratory distress, no accessory muscle use, + decreased breath sounds (bases) Cardiovascular: no edema, no gallop, no JVD, normal peripheral pulses, + tachycardia, + systolic murmur Abdomen / GI: normal bowel sounds, non tender, soft, no organomegaly Extremities: normal inspection, no calf tenderness, normal capillary refill , no pedal edema, normal range of motion, pelvis stable Neurologic/Psychiatric: repeater operator II-XII nml as tested, no motor/sensory deficits , alert, normal mood/affect, normal reflexes, oriented x 3 Skin: normal color, warm/dry, no rash Lymphatic: no adenopathy Hospital Course 51 yo male with recent diagnosis of dilated cardiomyopathy, bicuspid aortic valve with regurgitation who had been seen by cardiology one month ago, at that time referral to cardiovascular surgeon was recommended but the patient wanted to delay referral. Presented last evening in heart failure, acute dyspnea and was admitted to the ICU. Albumin and Lasix administered in the ED. No real diuresis. Levophed initiated to maintain a MAP > 55. - Acute decompensated dilated cardiomyopathy, bicuspid aortic valve with severe regurgitation and aortic root aneurysm currently stable on Levophed, breathing comfortably on 2L, 96%, lungs clear patient needs emergent transfer to tertiary care for aortic valve replacement accepted by Dr. Felipe left IJ in place with two peripheral sites Cr stable at 1.1 - Leukocytosis, weakness covering patient for endocarditis CT angiogram of chest did not show septic emboli, it was negative for PE, negative for aortic dissection CT did show bibasilar infiltrates continue Levaquin and Rocephin, afebrile, WBC is 18k with left shift - Elevated troponin up to 1.5 from 1.0, no chest pain on heparin gtt patient has not had a cardiac catheterization at this time so coronary disease/anatomy unknown EKG showed 1st degree AV block which was known, showed some subtle ST depressions in lateral leads transfer to [facility] via helicopter, appreciate Dr. Felipe accepting this patient Total Time Spent: Greater than 30 minutes This includes examination of the patient, discharge planning, medication reconciliation, and communication with other providers. Discharge Instructions Please refer to the electronic Patient Visit Report (Discharge Instructions) for additional information. Follow-Up surgery at [facility] Additional Copies To Logan Gomez MD
--- NOTE | 2017-04-05 08:53 | Cardiology Consultation ---
Cardiology Consultation Date of Consultation: Apr 05, 2017. Requesting Physician: Dr. Drake Attending Physician: Dr. Castañeda Reason for Consultation: Acute CHF and severe Aortic regurgitation Pt evaluation today including: conversation w/ patient, conversation w/ family , physical exam, chart review, lab review, review of studies, conversation w/ independent consultant, review of inpatient medication list, conversation w/ attending History of Present Illness Mr. Salter is a very pleasant 51-year-old gentleman with recently diagnosed bicuspid aortic valve with severe aortic regurgitation, dilated left ventricle, and dilated aortic root. He was recently evaluated by Dr. Ayala and was noted to have a murmur, which led to an echocardiogram as an outpatient. He was seen in the cardiology office on 03/26/2017 to discuss these findings. It was recommended that he undergo transesophageal echo and cardiac catheterization as well as a CT angiogram in anticipation of aortic valve replacement. He was asymptomatic at that time. He appeared to be overwhelmed with that visit and declined invasive testing at that time. He wanted time at home to think about things and wanted to return to the office 1 month later. Unfortunately, he develops symptoms shortly after leaving the office. He developed lower extremity edema a few days after he left the office. The edema progressively worsened over time. He states that he became acutely short of breath yesterday after walking in his home. Shortness of breath continued and occurred even at rest. He had to use 4 pillows to prop his head up to breathe. He denies chest pain, fevers, chills, syncope, near-syncope, lightheadedness, nausea, vomiting, abdominal pain, diarrhea, melena, hematochezia, or hematuria. Overnight while in the ICU, his systolic blood pressure was often in the 80s to 90s. Attempts were made to diurese as he was found to be in acute decompensated CHF. Eventually he was placed on low-dose norepinephrine and his blood pressure improved this morning with systolic blood pressures in the 90s to low 100s. He currently feels better than he did when he presented but this still not feel well. Review of systems: As above review of systems otherwise negative/unremarkable. Past Medical/Surgical History 1. Bicuspid aortic valve with severe regurgitation. 2. Dilated left ventricle 3. Dilated aortic root 4. Status post appendectomy Family History Father had valve replacement and CABG in his 50s. No known aortic dissection/ aneurysm. Social History Denies smoking. Rare alcohol. No drugs. and lives at home with his and 1 son. 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 Allergies Coded Allergies: No Known Allergies (Unverified , 04/04/17) Medications Current Inpatient Medications Medications (Trade) Dose Ordered Sig/Jj Route Start Time Stop Time Status Last Admin Dose Admin Miscellaneous Information (Consult) 1 ea UD PRN N/A 04/04/17 23:00 05/04/17 22:59 Ioversol (Optiray 320) 100 ml UD PRN IV 04/04/17 23:00 04/08/17 22:59 Acetaminophen (Tylenol Tab) 650 mg Q4H PRN PO 04/04/17 23:30 05/04/17 23:29 Nitroglycerin (Nitrostat Tab) 0.4 mg UD PRN SL 04/04/17 23:30 05/04/17 23:29 Morphine Sulfate (MoRPHine SULFATE INJ) 2 mg Q2H PRN IV 04/04/17 23:30 04/18/17 23:29 Miscellaneous Information (Icu Protocol For Hyperglycemia) 1 ea PRN PRN N/A 04/04/17 23:30 04/06/17 23:29 Ceftriaxone Sodium 2000 mg/ Dextrose 70 ml @ 100 mls/hr Q12H IV 04/05/17 10:00 05/17/17 09:59 Levofloxacin 750 mg/Prmx 150 ml @ 100 mls/hr Q24H IV 04/05/17 01:00 04/12/17 00:59 04/05/17 00:52 100 MLS/HR Pantoprazole Sodium 40 mg/ Syringe 10 ml @ 5 mls/min DAILY IV 04/05/17 09:00 04/08/17 09:01 Norepinephrine Bitartrate 8 mg/ Dextrose 508 ml @ 0 mls/hr Q0M PRN IV 04/05/17 03:28 05/05/17 03:27 04/05/17 04:04 3.2 MLS/HR Heparin Sodium/ Dextrose 500 ml @ 28 mls/hr [id number] PRN IV 04/05/17 05:00 05/05/17 04:59 04/05/17 05:15 28 MLS/HR Vancomycin HCl 1250 mg/Sodium Chloride 275 ml @ 125 mls/hr Q12H IV 04/05/17 11:00 05/17/17 10:59 Physical Exam Vital Signs Past 12 Hours Date Time Temp Pulse Resp B/P (MAP) Pulse Ox O2 Delivery O2 Flow Rate FiO2 04/05/17 08:31 99 25 94/42 (59) 95 Nasal Cannula 2.0 04/05/17 08:01 36.5 97 38 97/40 (59) 95 Nasal Cannula 2.0 04/05/17 07:46 90 35 104/34 (57) 95 Nasal Cannula 2.0 04/05/17 07:31 95 21 94/34 (54) 97 Nasal Cannula 2.0 04/05/17 07:16 97 34 102/45 (64) 96 Nasal Cannula 2.0 04/05/17 06:16 93 29 97/38 (57) 96 04/05/17 06:01 91 30 95/38 (57) 94 04/05/17 05:46 89 23 102/37 (58) 95 04/05/17 05:31 88 19 111/29 (56) 95 04/05/17 05:16 92 15 100/36 (57) 95 04/05/17 05:01 99 26 91/46 (61) 96 04/05/17 04:46 94 25 86/43 (57) 95 04/05/17 04:31 92 40 102/35 (57) 94 04/05/17 04:15 93 27 98/39 (58) 95 04/05/17 04:01 36.4 94 31 92/38 (56) 94 04/05/17 04:00 Nasal Cannula 2.0 04/05/17 03:45 93 24 92/38 (56) 93 04/05/17 03:30 93 21 96/37 (56) 93 04/05/17 03:16 96 31 83/34 (50) 93 04/05/17 03:01 103 24 90/42 (58) 94 04/05/17 02:00 92 24 84/35 (51) 95 04/05/17 01:46 92 28 94/33 (53) 95 04/05/17 01:30 93 28 91/31 (51) 95 04/05/17 01:16 93 19 89/33 (51) 94 04/05/17 01:00 94 36 90/37 (54) 94 04/05/17 00:52 36.5 98 18 83/35 95 Nasal Cannula 2.0 04/04/17 23:53 96 16 113/43 97 04/04/17 23:37 94 16 108/47 99 Nasal Cannula 2.0 04/04/17 23:01 105 18 93/39 100 Nasal Cannula 2.0 04/04/17 22:31 94 22 83/35 100 Nasal Cannula 2.0 04/04/17 22:12 94 20 83/43 95 Nasal Cannula 2.0 04/04/17 21:36 95 20 93/42 97 Nasal Cannula 2.0 04/04/17 21:14 96 Nasal Cannula 2.0 04/04/17 20:51 98 04/04/17 20:49 96 Nasal Cannula 2.0 04/04/17 20:40 36.8 104 20 103/47 92 Room Air 04/04/17 20:40 92 Room Air Gen.: Ill-appearing. Alert and oriented. HEENT: Anicteric sclera. Neck: JVD to the mandible. No bruits. Brisk carotid upstrokes bilaterally. Cardiac: PMI was nonpalpable. No ventricular heave. Regular with occasional ectopy. 2/6 systolic and diastolic murmurs heard throughout the precordium. No audible rubs or gallops. Pulmonary: Bibasilar rales. Abdomen: Soft, nontender, nondistended, with normoactive bowel sounds. No bruits noted. Extremities: 2+ radial pulses bilaterally. 2+ posterior tibialis pulses bilaterally. 2 to 3+ bilateral lower extremity edema to the knees. No cyanosis.No splinter hemorrhages, Janeway lesions, or Osler's nodes. Psychiatric: Affect appears appropriate. Data Laboratory Results: Last 24 Hours Test 04/04/17 20:56 04/04/17 23:51 04/05/17 00:00 04/05/17 01:25 White Blood Count 17.92 K/uL Red Blood Count 3.57 M/uL Hemoglobin 10.9 g/dL Hematocrit 32.4 % Mean Corpuscular Volume 90.8 fL Mean Corpuscular Hemoglobin 30.5 pg Mean Corpuscular Hemoglobin Concent 33.6 g/dl Platelet Count 372 K/uL Mean Platelet Volume 10.4 fL Neutrophils (%) (Auto) 90.6 % Lymphocytes (%) (Auto) 4.9 % Monocytes (%) (Auto) 3.6 % Eosinophils (%) (Auto) 0.1 % Basophils (%) (Auto) 0.2 % Neutrophils # (Auto) 16.27 K/uL Lymphocytes # (Auto) 0.87 K/uL Monocytes # (Auto) 0.64 K/uL Eosinophils # (Auto) 0.01 K/uL Basophils # (Auto) 0.03 K/uL RDW Standard Deviation 46.3 fL RDW Coefficient of Variation 14.1 % Immature Granulocyte % (Auto) 0.6 % Immature Granulocyte # (Auto) 0.10 K/uL Erythrocyte Sedimentation Rate 53 mm/hr Prothrombin Time 12.1 SECONDS Prothromb Time International Ratio 1.2 Activated Partial Thromboplast Time 27.3 SECONDS Partial Thromboplastin Ratio 1.1 Sodium Level 130 mmol/L Potassium Level 4.5 mmol/L Chloride Level 99 mmol/L Carbon Dioxide Level 23 mmol/L Anion Gap 8.0 mmol/L Blood Urea Nitrogen 30 mg/dl Creatinine 1.31 mg/dl Est Creatinine Clear Calc Drug Dose 72.9 ml/min Estimated GFR () 71.5 Estimated GFR (Non- 61.7 BUN/Creatinine Ratio 22.6 Random Glucose 146 mg/dl Calcium Level 7.8 mg/dl Magnesium Level 2.5 mg/dl Total Bilirubin 0.9 mg/dl Aspartate Amino Transf (AST/SGOT) 40 U/L Alanine Aminotransferase (ALT/SGPT) 66 U/L Alkaline Phosphatase 89 U/L Troponin I 1.060 ng/ml 1.300 ng/ml Pro-B-Type Natriuretic Peptide > 84783 pg/ml Total Protein 7.1 gm/dl Albumin 2.4 gm/dl Globulin 4.7 gm/dl Albumin/Globulin Ratio 0.5 Monoscreen NEG Influenza Type A Antigen Neg for Influ A Influenza Type B Antigen Neg for Influ B Lactic Acid Level 1.6 mmol/L Phosphorus Level 2.8 mg/dl Procalcitonin 0.86 ng/ml Lyme Disease IgG Antibody NEG Lyme Disease IgM Antibody NEG Anti-Streptolysin O Antibody Screen NEG IU/ml Test 04/05/17 01:31 04/05/17 06:05 04/05/17 06:17 Bedside Glucose 131 mg/dl White Blood Count 18.40 K/uL Red Blood Count 3.00 M/uL Hemoglobin 9.0 g/dL Hematocrit 27.2 % Mean Corpuscular Volume 90.7 fL Mean Corpuscular Hemoglobin 30.0 pg Mean Corpuscular Hemoglobin Concent 33.1 g/dl Platelet Count 305 K/uL Mean Platelet Volume 10.0 fL Neutrophils (%) (Auto) 88.7 % Lymphocytes (%) (Auto) 5.5 % Monocytes (%) (Auto) 5.1 % Eosinophils (%) (Auto) 0.1 % Basophils (%) (Auto) 0.2 % Neutrophils # (Auto) 16.32 K/uL Lymphocytes # (Auto) 1.02 K/uL Monocytes # (Auto) 0.93 K/uL Eosinophils # (Auto) 0.02 K/uL Basophils # (Auto) 0.03 K/uL RDW Standard Deviation 46.4 fL RDW Coefficient of Variation 14.2 % Immature Granulocyte % (Auto) 0.4 % Immature Granulocyte # (Auto) 0.08 K/uL Sodium Level 131 mmol/L Potassium Level 4.3 mmol/L Chloride Level 101 mmol/L Carbon Dioxide Level 22 mmol/L Anion Gap 8.0 mmol/L Blood Urea Nitrogen 27 mg/dl Creatinine 1.16 mg/dl Est Creatinine Clear Calc Drug Dose 76.0 ml/min Estimated GFR () 82.9 Estimated GFR (Non- 71.5 BUN/Creatinine Ratio 23.4 Random Glucose 124 mg/dl Calcium Level 7.2 mg/dl Magnesium Level 2.3 mg/dl Total Bilirubin 0.9 mg/dl Aspartate Amino Transf (AST/SGOT) 27 U/L Alanine Aminotransferase (ALT/SGPT) 45 U/L Alkaline Phosphatase 64 U/L Troponin I 1.570 ng/ml Total Protein 5.8 gm/dl Albumin 2.2 gm/dl Globulin 3.6 gm/dl Albumin/Globulin Ratio 0.6 Bedside Glucose (other) 131 mg/dl ECG personally reviewed. ECG 04/04/2017: Sinus rhythm with first-degree AV block at 98 bpm. Anteroseptal infarct. Left axis deviation. Nonspecific ST/T-wave abnormality. Telemetry personally reviewed. Paroxysmal atrial tachycardia otherwise sinus rhythm. Echocardiogram images personally reviewed. Echo 04/05/2017: Preliminary review. Moderately reduced LV systolic function. Dilated LV. EF 35-40% estimated. Severe aortic regurgitation. Bicuspid aortic valve. Full report to follow after formal review. Labs reviewed. CT angiogram image personally reviewed. CT angiogram 04/04/2017: No dissection. Assessment & Plan ASSESSMENT/PLAN: 1. Acute systolic CHF: He presented with acute decompensated CHF likely secondary to severe aortic regurgitation. Will given additional Lasix 40 mg IV. Blood pressure has stabilized on pressor. Recommend transfer to tertiary care center with CT surgery availability. Monitor fluid balance and daily weights. 2. Bicuspid aortic valve with severe aortic regurgitation: Recommend transesophageal echo and coronary angiography in anticipation of aortic valve replacement. Transfer to [facility] has been arranged as he was accepted by Dr. Felipe of CT surgery. 3. Cardiomyopathy: Likely secondary to severe aortic regurgitation. If he becomes more hypotensive, would consider dobutamine for inotropic support. This was discussed with critical care team. 4. Leukocytosis and elevated ESR: There is concern for infection given these lab findings. Transesophageal echo recommended to evaluate for endocarditis. Would recommend broad-spectrum antibiotics to cover endocarditis. This was discussed with the critical care team. CT surgery was also made aware of these findings. 5. Anemia: As per primary service. 6. Hypotension: Likely related to his aortic regurgitation, and possible infection. Consider dobutamine if he becomes hypotensive once again. Currently he is on low-dose norepinephrine as per the critical care team. 7. Dilated aortic root: CT scan did not demonstrate dissection. Consideration for aortic root replacement as well with aortic valve replacement. Will defer to CT surgeon after transesophageal ECHO is performed. 8. Disposition: Plan has been discussed extensively with patient and also his via telephone. Any questions were answered. Transfer was recommended and arranged personally after discussing with Dr. Felipe at [facility]. Case discussed with Dr. Castañeda as well as the critical care team attending. Highly complex medical issues. 90 minutes critical care time spent, including coordinating care, reviewing images/studies/chart, and counseling patient at the bedside and his via telephone.
[2017-04-05] MEDS ORDERED: VANCOMYCIN INJ 1,000 MG in SODIUM CHLORIDE 0.9% 250ML 250 ML IV SCH (09:00)
[2017-04-05] MEDS ORDERED: PANTOprazole INJ 40 MG in SYRINGE 0 ML IV SCH (09:00)
[2017-04-05] MEDS ORDERED: FUROSEMIDE 10 MG/ML 10 ML VIAL ONE (09:23)
[2017-04-05] MEDS ORDERED: FUROSEMIDE INJ 40 MG in SYRINGE 0 ML IV ONE (09:30)
[2017-04-05] MEDS ORDERED: CEFTRIAXONE SOD INJ 2,000 MG in DEXTROSE 5% 50ML 50 ML IV SCH (10:00)
--- NOTE | 2017-04-05 10:09 | Critical Care Progress Note ---
Critical Care Progress Note Date of Service Apr 05, 2017. Attending Dr. Faulkner Subjective On low dose pressors vie left IJ TLC Stable otherwise Objective General: NAD HEENT: old scar in submental area CVS: S1S2 regular, systolic/diastolic murmur Pulmonary: Few bibasilar crackles Abdomen: Soft, non-tender Ext: Pedal edema b/l TRADE ANALYST: No focal deficit Assessment & Plan Decompensated heart failure Bicuspid aortic valve with aortic regurgitation Cardiogenic shock Plan: Continue pressors support with Levophed. If needed, to add dobutamine Gentle diuresis if tolerated At this juncture, the problem seems to be purely surgical in nature, medical therapy can only help so much. To be transferred to [facility] for pre-operative work-up and aortic valve replacement. Empiric Abx coverage in the unlikely situation that he has bacterial endocarditis. On Vanco and Rocephin Currently being setup for transfer by helicopter, the team is here. Critical care time spent with the patient, reviewing chart, discussing with consultants, greater than 30 minutes Consults & Procedures Consultants: Cardio - Dr Burrell Procedures: 04/05/17 - left IJ TLC Data Medications: Current Inpatient Medications Medications (Trade) Dose Ordered Sig/Jj Route Start Time Stop Time Status Last Admin Dose Admin Miscellaneous Information (Consult) 1 ea UD PRN N/A 04/04/17 23:00 05/04/17 22:59 Ioversol (Optiray 320) 100 ml UD PRN IV 04/04/17 23:00 04/08/17 22:59 Acetaminophen (Tylenol Tab) 650 mg Q4H PRN PO 04/04/17 23:30 05/04/17 23:29 Nitroglycerin (Nitrostat Tab) 0.4 mg UD PRN SL 04/04/17 23:30 05/04/17 23:29 Morphine Sulfate (MoRPHine SULFATE INJ) 2 mg Q2H PRN IV 04/04/17 23:30 04/18/17 23:29 Miscellaneous Information (Icu Protocol For Hyperglycemia) 1 ea PRN PRN N/A 04/04/17 23:30 04/06/17 23:29 Ceftriaxone Sodium 2000 mg/ Dextrose 70 ml @ 100 mls/hr Q12H IV 04/05/17 10:00 05/17/17 09:59 Levofloxacin 750 mg/Prmx 150 ml @ 100 mls/hr Q24H IV 04/05/17 01:00 04/12/17 00:59 04/05/17 00:52 100 MLS/HR Pantoprazole Sodium 40 mg/ Syringe 10 ml @ 5 mls/min DAILY IV 04/05/17 09:00 04/08/17 09:01 04/05/17 09:27 5 MLS/MIN Norepinephrine Bitartrate 8 mg/ Dextrose 508 ml @ 0 mls/hr Q0M PRN IV 04/05/17 03:28 05/05/17 03:27 04/05/17 04:04 3.2 MLS/HR Heparin Sodium/ Dextrose 500 ml @ 28 mls/hr [id number] PRN IV 04/05/17 05:00 05/05/17 04:59 04/05/17 05:15 28 MLS/HR Vancomycin HCl 1250 mg/Sodium Chloride 275 ml @ 125 mls/hr Q12H IV 04/05/17 11:00 05/17/17 10:59 Vital Signs: Date Time Temp Pulse Resp B/P (MAP) Pulse Ox O2 Delivery O2 Flow Rate FiO2 04/05/17 08:31 99 25 94/42 (59) 95 Nasal Cannula 2.0 04/05/17 08:01 36.5 97 38 97/40 (59) 95 Nasal Cannula 2.0 04/05/17 08:00 Nasal Cannula 2.0 04/05/17 07:46 90 35 104/34 (57) 95 Nasal Cannula 2.0 04/05/17 07:31 95 21 94/34 (54) 97 Nasal Cannula 2.0 04/05/17 07:16 97 34 102/45 (64) 96 Nasal Cannula 2.0 04/05/17 06:16 93 29 97/38 (57) 96 04/05/17 06:01 91 30 95/38 (57) 94 04/05/17 05:46 89 23 102/37 (58) 95 04/05/17 05:31 88 19 111/29 (56) 95 04/05/17 05:16 92 15 100/36 (57) 95 04/05/17 05:01 99 26 91/46 (61) 96 04/05/17 04:46 94 25 86/43 (57) 95 04/05/17 04:31 92 40 102/35 (57) 94 04/05/17 04:15 93 27 98/39 (58) 95 04/05/17 04:01 36.4 94 31 92/38 (56) 94 04/05/17 04:00 Nasal Cannula 2.0 04/05/17 03:45 93 24 92/38 (56) 93 04/05/17 03:30 93 21 96/37 (56) 93 04/05/17 03:16 96 31 83/34 (50) 93 04/05/17 03:01 103 24 90/42 (58) 94 04/05/17 02:00 92 24 84/35 (51) 95 04/05/17 01:46 92 28 94/33 (53) 95 04/05/17 01:30 93 28 91/31 (51) 95 04/05/17 01:16 93 19 89/33 (51) 94 04/05/17 01:00 94 36 90/37 (54) 94 04/05/17 00:52 36.5 98 18 83/35 95 Nasal Cannula 2.0 04/04/17 23:53 96 16 113/43 97 04/04/17 23:37 94 16 108/47 99 Nasal Cannula 2.0 04/04/17 23:01 105 18 93/39 100 Nasal Cannula 2.0 04/04/17 22:31 94 22 83/35 100 Nasal Cannula 2.0 04/04/17 22:12 94 20 83/43 95 Nasal Cannula 2.0 04/04/17 21:36 95 20 93/42 97 Nasal Cannula 2.0 04/04/17 21:14 96 Nasal Cannula 2.0 04/04/17 20:51 98 04/04/17 20:49 96 Nasal Cannula 2.0 04/04/17 20:40 36.8 104 20 103/47 92 Room Air 04/04/17 20:40 92 Room Air Laboratory Results: Last 24 Hours Test 04/04/17 20:56 04/04/17 23:51 04/05/17 00:00 04/05/17 01:25 White Blood Count 17.92 K/uL Red Blood Count 3.57 M/uL Hemoglobin 10.9 g/dL Hematocrit 32.4 % Mean Corpuscular Volume 90.8 fL Mean Corpuscular Hemoglobin 30.5 pg Mean Corpuscular Hemoglobin Concent 33.6 g/dl Platelet Count 372 K/uL Mean Platelet Volume 10.4 fL Neutrophils (%) (Auto) 90.6 % Lymphocytes (%) (Auto) 4.9 % Monocytes (%) (Auto) 3.6 % Eosinophils (%) (Auto) 0.1 % Basophils (%) (Auto) 0.2 % Neutrophils # (Auto) 16.27 K/uL Lymphocytes # (Auto) 0.87 K/uL Monocytes # (Auto) 0.64 K/uL Eosinophils # (Auto) 0.01 K/uL Basophils # (Auto) 0.03 K/uL RDW Standard Deviation 46.3 fL RDW Coefficient of Variation 14.1 % Immature Granulocyte % (Auto) 0.6 % Immature Granulocyte # (Auto) 0.10 K/uL Erythrocyte Sedimentation Rate 53 mm/hr Prothrombin Time 12.1 SECONDS Prothromb Time International Ratio 1.2 Activated Partial Thromboplast Time 27.3 SECONDS Partial Thromboplastin Ratio 1.1 Sodium Level 130 mmol/L Potassium Level 4.5 mmol/L Chloride Level 99 mmol/L Carbon Dioxide Level 23 mmol/L Anion Gap 8.0 mmol/L Blood Urea Nitrogen 30 mg/dl Creatinine 1.31 mg/dl Est Creatinine Clear Calc Drug Dose 72.9 ml/min Estimated GFR () 71.5 Estimated GFR (Non- 61.7 BUN/Creatinine Ratio 22.6 Random Glucose 146 mg/dl Calcium Level 7.8 mg/dl Magnesium Level 2.5 mg/dl Total Bilirubin 0.9 mg/dl Aspartate Amino Transf (AST/SGOT) 40 U/L Alanine Aminotransferase (ALT/SGPT) 66 U/L Alkaline Phosphatase 89 U/L Troponin I 1.060 ng/ml 1.300 ng/ml Pro-B-Type Natriuretic Peptide > 46775 pg/ml Total Protein 7.1 gm/dl Albumin 2.4 gm/dl Globulin 4.7 gm/dl Albumin/Globulin Ratio 0.5 Monoscreen NEG Influenza Type A Antigen Neg for Influ A Influenza Type B Antigen Neg for Influ B Lactic Acid Level 1.6 mmol/L Phosphorus Level 2.8 mg/dl Procalcitonin 0.86 ng/ml Lyme Disease IgG Antibody NEG Lyme Disease IgM Antibody NEG Anti-Streptolysin O Antibody Screen NEG IU/ml Test 04/05/17 01:31 04/05/17 06:05 04/05/17 06:17 Bedside Glucose 131 mg/dl White Blood Count 18.40 K/uL Red Blood Count 3.00 M/uL Hemoglobin 9.0 g/dL Hematocrit 27.2 % Mean Corpuscular Volume 90.7 fL Mean Corpuscular Hemoglobin 30.0 pg Mean Corpuscular Hemoglobin Concent 33.1 g/dl Platelet Count 305 K/uL Mean Platelet Volume 10.0 fL Neutrophils (%) (Auto) 88.7 % Lymphocytes (%) (Auto) 5.5 % Monocytes (%) (Auto) 5.1 % Eosinophils (%) (Auto) 0.1 % Basophils (%) (Auto) 0.2 % Neutrophils # (Auto) 16.32 K/uL Lymphocytes # (Auto) 1.02 K/uL Monocytes # (Auto) 0.93 K/uL Eosinophils # (Auto) 0.02 K/uL Basophils # (Auto) 0.03 K/uL RDW Standard Deviation 46.4 fL RDW Coefficient of Variation 14.2 % Immature Granulocyte % (Auto) 0.4 % Immature Granulocyte # (Auto) 0.08 K/uL Sodium Level 131 mmol/L Potassium Level 4.3 mmol/L Chloride Level 101 mmol/L Carbon Dioxide Level 22 mmol/L Anion Gap 8.0 mmol/L Blood Urea Nitrogen 27 mg/dl Creatinine 1.16 mg/dl Est Creatinine Clear Calc Drug Dose 76.0 ml/min Estimated GFR () 82.9 Estimated GFR (Non- 71.5 BUN/Creatinine Ratio 23.4 Random Glucose 124 mg/dl Calcium Level 7.2 mg/dl Magnesium Level 2.3 mg/dl Total Bilirubin 0.9 mg/dl Aspartate Amino Transf (AST/SGOT) 27 U/L Alanine Aminotransferase (ALT/SGPT) 45 U/L Alkaline Phosphatase 64 U/L Troponin I 1.570 ng/ml Total Protein 5.8 gm/dl Albumin 2.2 gm/dl Globulin 3.6 gm/dl Albumin/Globulin Ratio 0.6 Bedside Glucose (other) 131 mg/dl
[2017-04-05] MEDS ORDERED: VANCOMYCIN INJ 1,250 MG in SODIUM CHLORIDE 0.9% 250ML 250 ML IV SCH (11:00)
--- NOTE | 2017-04-05 14:11 | ECHOCARDIOGRAM REPORT ---
*NOTICE TO RECEIVING [employer] This information is strictly Confidential and protected under [place] law. [place] law prohibits you from making any further disclosure of this information unless further disclosure is expressly permitted by the written consent of the person to whom it pertains or is authorized by law. A general authorization for the release of medical or other information is not sufficient for this purpose. Hospital accepts no responsibility if the information is made available to any other person, INCLUDING THE PATIENT. Interpretation Summary * Name: WOOD WINTERS Study Date: 04/05/2017 06:36 AM BP: 97/38 mmHg * Patient Location: .MSICU\S\E108\S\1 HR: 93 * : 1965 (M/d/yyyy) Gender: Male Height: 70 in * Age: 51 yrs Ethnicity: CA Weight: 194 lb * Ordering Physician: Alex Cifuentes * Referring Physician: Self, Referred * Performed By: Alayna Raya RDCS * * Reason For Study: CHF, MURMURS * BSA: 2.1 m2 * -- Conclusions -- * 1. Severely dilated left ventricle with moderately reduced systolic function. EF 35-40%. Global hypokinesis. No left ventricular hypertrophy. * 2. Bicuspid aortic valve with severe aortic regurgitation. Aortic valve leaflets fail to coapt during diastole. Anterior leaflet has large dense echodensity, consider calcification vs vegetation. * 3. Mild systolic anterior motion of the mitral leaflet, without obstruction. * 4. Trace to small pericardial effusion. * 5. Mild aortic root dilatation. * 6. No prior study available for side to side comparison. Procedure Details * A contrast injection of Definity was performed to improve assessment of LV function. * Contrast was injected into an intravenous site in the central line. * One vial of Definity ultrasound contrast was diluted in normal saline to a total volume of 10 ml. A total of '2' ml of solution was administered during imaging. * Lot # [id number] of Definity utilized for procedure. * Expiration date MAR 16. * The attending nurse who injected the contrast agent was AURORA GIRON. Left Ventricle * Severely dilated left ventricle with moderately reduced systolic function. EF 35-40%. Global hypokinesis. No left ventricular hypertrophy. Right Ventricle * The right ventricle is normal in size and function. * The right ventricular systolic function is normal as assessed by tricuspid annular plane systolic excursion (TAPSE) (normal >1.5 cm). Atria * The left atrial size is normal. * Right atrial size is normal. * There is no evidence of atrial septal defect, but resolution does not allow assessment for a patent foramen ovale. Mitral Valve * Mild systolic anterior motion of the mitral leaflet, without obstruction. * There is no mitral valve stenosis. * Significant mitral regurgitation is absent. Tricuspid Valve * The tricuspid valve is not well visualized, but is grossly normal. * There is no tricuspid stenosis. * Significant tricuspid regurgitation is absent. Aortic Valve * Bicuspid aortic valve with severe aortic regurgitation. Aortic valve leaflets fail to coapt during diastole. Anterior leaflet has large dense echodensity, consider calcification vs vegetation. * No hemodynamically significant valvular aortic stenosis. Pulmonic Valve * The pulmonary valve is inadequately visualized, but the Doppler data is adequate for interpretation. * There is no pulmonic valvular stenosis. * There is no significant pulmonary regurgitation. Great Vessels * Mild aortic root dilatation. Pericardium/Pleural * Trace to small pericardial effusion. Great Vessels * Normal inferior vena cava size and collapsability with sniff indicates a normal right atrial pressure of 3 mmHg MMode 2D Measurements and Calculations IVSd 1.1 cm IVSs 1.5 cm LVIDd 7.4 cm LVIDs 5.8 cm LVPWd 0.99 cm LVPWs 1.7 cm IVS/LVPW 1.1 FS 21.4 % EDV(Teich) 287.8 ml ESV(Teich) 166.5 ml EF(Teich) 42.1 % EDV(cubed) 402.1 ml ESV(cubed) 195.0 ml EF(cubed) 51.5 % % IVS thick 36.5 % % LVPW thick 75.3 % LV mass(C)d 370.2 grams LV mass(C)dI 179.7 grams/m\S\2 LV mass(C)s 448.9 grams LV mass(C)sI 217.8 grams/m\S\2 SV(Teich) 121.3 ml SI(Teich) 58.8 ml/m\S\2 SV(cubed) 207.0 ml SI(cubed) 100.5 ml/m\S\2 Ao root diam 4.7 cm Ao root area 17.1 cm\S\2 LA dimension 4.3 cm LA/Ao 0.93 LVOT diam 2.9 cm LVOT area 6.6 cm\S\2 LVAd ap4 65.6 cm\S\2 LVLd ap4 10.7 cm EDV(MOD-sp4) 339.7 ml EDV(sp4-el) 341.3 ml LVAs ap4 52.3 cm\S\2 LVLs ap4 10.2 cm ESV(MOD-sp4) 221.6 ml ESV(sp4-el) 227.7 ml EF(MOD-sp4) 34.8 % EF(sp4-el) 33.3 % LVAd ap2 68.2 cm\S\2 LVLd ap2 11.7 cm EDV(MOD-sp2) 338.9 ml EDV(sp2-el) 338.1 ml LVAs ap2 48.8 cm\S\2 LVLs ap2 10.2 cm ESV(MOD-sp2) 195.0 ml ESV(sp2-el) 198.9 ml EF(MOD-sp2) 42.5 % EF(sp2-el) 41.2 % LVLd %diff 5.1 % EDV(MOD-bp) 346.0 ml LVLs %diff -0.30 % ESV(MOD-bp) 201.1 ml EF(MOD-bp) 41.9 % SV(MOD-sp4) 118.1 ml SI(MOD-sp4) 57.3 ml/m\S\2 SV(MOD-sp2) 143.9 ml SI(MOD-sp2) 69.8 ml/m\S\2 SV(MOD-bp) 144.9 ml SI(MOD-bp) 70.3 ml/m\S\2 SV(sp4-el) 113.6 ml SI(sp4-el) 55.1 ml/m\S\2 SV(sp2-el) 139.2 ml SI(sp2-el) 67.5 ml/m\S\2 Doppler Measurements and Calculations MV E max kassandra 154.4 cm/sec Ao V2 max 199.3 cm/sec Ao max PG 15.9 mmHg Ao max PG (full) 11.6 mmHg Ao V2 mean 139.7 cm/sec Ao mean PG 9.0 mmHg Ao mean PG (full) 6.9 mmHg Ao V2 VTI 40.8 cm TIFFANY(I,A) 3.6 cm\S\2 TIFFANY(I,D) 3.6 cm\S\2 TIFFANY(V,A) 3.4 cm\S\2 TIFFANY(V,D) 3.4 cm\S\2 AI max kassandra 314.0 cm/sec AI max PG 39.5 mmHg AI dec slope 1039.4 cm/sec\S\2 AI P1/2t 88.5 msec LV V1 max PG 4.3 mmHg LV V1 mean PG 2.1 mmHg LV V1 max 103.7 cm/sec LV V1 mean 67.8 cm/sec LV V1 VTI 22.0 cm SV(Ao) 698.6 ml SI(Ao) 339.0 ml/m\S\2 SV(LVOT) 144.7 ml SI(LVOT) 70.2 ml/m\S\2 RAP systole 3.0 mmHg
[2017-04-06] MEDS ORDERED: VANCOMYCIN TROUGH ONE (10:30)
--- NOTE | 2017-04-09 06:18 | EDITING REQUIRED CODING QUERY ---
SEPSIS To promote full compliance with coding requirements relating to patient care, physician participation is requested in all cases of telecom network manager uncertainty. Please assist us with the question(s) below: In responding to this query, please exercise your independent professional judgement. The fact that a question is asked does not imply that any particular answer is desired or expected. We appreciate your clarification on this issue. Throughout the medical record, you have clearly documented a localized infection and your patient has clinical evidence of a generalized sepsis or severe sepsis. The term urosepsis is a nonspecific entity and is coded as an UTI. If the patient has sepsis, severe sepsis, from an urinary source or some other source, please clarify in your response below. The medical record reflects the following clinical findings: (With dates as appropriate) (Body temperature of >38.3 C(101 F) or <36 C(96.8F), pulse >90/minute, respirations >20/minute, WBC count >12,000 or <4,000, altered mental status, significant edema or positive fluid balance, hyperglycemia without diabetes, hypotension, metabolic acidosis (elev. lactate level, anion gap or reduced blood pH), shock, positive blood culture (enter organism) ()Bacteremia (Nonspecific laboratory finding of bacteria in the blood) Specify Organism () Present on Admission () Not present on admission () Unable to clinically determine () Septicemia (Systemic disease associated with the presence of pathogenic microorganisms in the blood): Specify Organism () Present on Admission () Not present on admission () Unable to clinically determine () Sepsis Specify Organism Specify Associated Condition/Diagnosis () Present on Admission () Not present on admission () Unable to clinically determine () Severe Sepsis (Sepsis associated with acute organ dysfunction) Specify Organism Specify Associated Condition/Diagnosis () Present on Admission () Not present on admission () Unable to clinically determine () Septic Shock (Severe sepsis with acute circulatory failure, unexplained by other causes) () Present on Admission () Not present on admission () Unable to clinically determine (x) Other, patient has: severe sepsis with possible endocarditis Organism: Streptococcus anginosa Patient was transferred to other hospital, not sure if he had vegetation on valve
== END 2017-04-05 10:15 | disposition short-term general hospital (02) | DRG 871 ==
LOC: EDBD 20:39 → C.EDB 20:40 → C.MSICU 23:34 → ENRESERV 23:38
PROVIDERS: ADMIT Hospitalist; ATTEND Internal Medicine
PROC: 02HV33Z Insertion of Infusion Device into Superior Vena Cava, Percutaneous Approach (ICD-10-PCS; principal; 2017-04-05)
DX: A40.8 Other streptococcal sepsis (principal); I33.0 Acute and subacute infective endocarditis; R65.20 Severe sepsis without septic shock; I50.21 Acute systolic (congestive) heart failure; R57.0 Cardiogenic shock; Q23.1 Congenital insufficiency of aortic valve; Q25.43 Congenital aneurysm of aorta; I42.0 Dilated cardiomyopathy; I44.0 Atrioventricular block, first degree; R09.02 Hypoxemia; R78.89 Finding of other specified substances, not normally found in blood; K21.9 Gastro-esophageal reflux disease without esophagitis; Z82.49 Family history of ischemic heart disease and other diseases of the circulatory system

== ENCOUNTER → 2017-04-30 | Outpatient (CLI) | payer OTHER ==
[~2017-04-30] MED LIST: AMIO200T4 PO; FURO-85 PO; MAGN400T6 PO; POTA20TA16 PO; SENNEXT PO; WARF3TAB PO
[2017-04-30 16:40] LABS: BASO % 0.8 %; BASO ABS # 0.09 K/uL (0-0.2); EOS % 4.1 %; EOS ABS # 0.44 K/uL (0-0.5); HEMATOCRIT 32.6 % (42-52); HEMOGLOBIN 10.2 g/dL (14.0-18.0); IG# 0.03 K/uL (0.00-0.02); LYMPH ABS # 0.64 K/uL (1.2-3.4); MEAN CELL VOLUME 98.5 fL (80-100); MEAN CORPUSCULAR HEMOGLOBIN 30.8 pg (25-34); MEAN PLATELET VOLUME 8.9 fL (7.4-10.4); MONO % 9.3 %; MONO ABS # 0.99 K/uL (0.11-0.59); NEUT % 79.5 %; NEUT ABS # 8.46 K/uL (1.4-6.5); PLATELET COUNT 628 K/uL (130-400); RED CELL DISTRIBUTION WIDTH CV 18.3 % (11.5-14.5); WHITE BLOOD COUNT 10.65 K/uL (4.8-10.8)
[2017-04-30 16:42] LABS: MEAN CORPUSCULAR HGB CONC 31.3 g/dl (32-36)
[2017-04-30 16:48] LABS: INR 3.2 (0.9-1.1)
[2017-04-30 16:51] LABS: ALKALINE PHOSPHATASE 179 U/L (45-117); ALT/SGPT 65 U/L (12-78); AST/SGOT 29 U/L (15-37); BLOOD UREA NITROGEN 20 mg/dl (7-18); CARBON DIOXIDE 27 mmol/L (21-32); CREATININE 1.08 mg/dl (0.60-1.40); POTASSIUM 3.8 mmol/L (3.5-5.1); SODIUM 136 mmol/L (136-145)
== END | disposition home or self-care (01) ==
LOC: C.LABSPEC 16:10
PROVIDERS: ATTEND Surgery
DX: Z79.01 Long term (current) use of anticoagulants (principal); R57.0 Cardiogenic shock; I33.0 Acute and subacute infective endocarditis

== ENCOUNTER → 2017-05-03 | Outpatient (CLI) | payer OTHER ==
[2017-05-03 13:58] LABS: INR 3.8 (0.9-1.1)
== END | disposition home or self-care (01) ==
LOC: C.LABSPEC 13:25
PROVIDERS: ATTEND Surgery
DX: Z79.82 Long term (current) use of aspirin (principal); I50.9 Heart failure, unspecified; I33.0 Acute and subacute infective endocarditis; Z79.01 Long term (current) use of anticoagulants

== ENCOUNTER → 2017-05-07 | Outpatient (CLI) | payer OTHER ==
[2017-05-07 13:41] LABS: BASO % 0.4 %; BASO ABS # 0.03 K/uL (0-0.2); EOS ABS # 0.78 K/uL (0-0.5); HEMATOCRIT 35.8 % (42-52); HEMOGLOBIN 11.1 g/dL (14.0-18.0); IG# 0.01 K/uL (0.00-0.02); LYMPH % 8.7 %; LYMPH ABS # 0.62 K/uL (1.2-3.4); MEAN CELL VOLUME 98.4 fL (80-100); MEAN CORPUSCULAR HEMOGLOBIN 30.5 pg (25-34); MEAN PLATELET VOLUME 9.2 fL (7.4-10.4); MONO % 6.1 %; MONO ABS # 0.43 K/uL (0.11-0.59); NEUT % 73.7 %; NEUT ABS # 5.23 K/uL (1.4-6.5); PLATELET COUNT 340 K/uL (130-400); RED CELL DISTRIBUTION WIDTH CV 17.1 % (11.5-14.5); RED CELL DISTRIBUTION WIDTH SD 62.7 fL (36.4-46.3)
[2017-05-07 13:45] LABS: INR 2.5 (0.9-1.1)
[2017-05-07 13:49] LABS: ALT/SGPT 45 U/L (12-78); AST/SGOT 20 U/L (15-37); BLOOD UREA NITROGEN 21 mg/dl (7-18); CARBON DIOXIDE 27 mmol/L (21-32); CREATININE 1.03 mg/dl (0.60-1.40); SODIUM 136 mmol/L (136-145)
[2017-05-07 13:51] LABS: ALKALINE PHOSPHATASE 148 U/L (45-117)
== END | disposition home or self-care (01) ==
LOC: C.LABSPEC 13:05
PROVIDERS: ATTEND Surgery
DX: Z79.01 Long term (current) use of anticoagulants (principal); Z51.81 Encounter for therapeutic drug level monitoring; D50.9 Iron deficiency anemia, unspecified; I33.0 Acute and subacute infective endocarditis

== ENCOUNTER → 2017-05-10 | Outpatient (CLI) | payer OTHER ==
[2017-05-10 12:43] LABS: INR 2.6 (0.9-1.1)
== END | disposition home or self-care (01) ==
LOC: C.LABSPEC 12:21
PROVIDERS: ATTEND Surgery
DX: Z51.81 Encounter for therapeutic drug level monitoring (principal); Z79.82 Long term (current) use of aspirin; Z79.01 Long term (current) use of anticoagulants

== ENCOUNTER → 2017-05-14 | Outpatient (CLI) | payer OTHER ==
[2017-05-14 14:28] LABS: BASO % 1.2 %; BASO ABS # 0.08 K/uL (0-0.2); EOS ABS # 0.34 K/uL (0-0.5); HEMATOCRIT 38.6 % (42-52); HEMOGLOBIN 12.4 g/dL (14.0-18.0); IG# 0.01 K/uL (0.00-0.02); LYMPH % 11.7 %; MEAN CELL VOLUME 97.5 fL (80-100); MEAN CORPUSCULAR HEMOGLOBIN 31.3 pg (25-34); MEAN PLATELET VOLUME 8.8 fL (7.4-10.4); MONO % 7.9 %; MONO ABS # 0.54 K/uL (0.11-0.59); NEUT % 74.1 %; NEUT ABS # 5.08 K/uL (1.4-6.5); PLATELET COUNT 353 K/uL (130-400); RED CELL DISTRIBUTION WIDTH CV 16.6 % (11.5-14.5); RED CELL DISTRIBUTION WIDTH SD 59.8 fL (36.4-46.3); WHITE BLOOD COUNT 6.85 K/uL (4.8-10.8)
[2017-05-14 14:38] LABS: ALKALINE PHOSPHATASE 135 U/L (45-117); ALT/SGPT 45 U/L (12-78); AST/SGOT 26 U/L (15-37); BLOOD UREA NITROGEN 24 mg/dl (7-18); CARBON DIOXIDE 27 mmol/L (21-32); INR 2.3 (0.9-1.1); SODIUM 135 mmol/L (136-145)
[2017-05-14 14:45] LABS: MEAN CORPUSCULAR HGB CONC 32.1 g/dl (32-36)
--- NOTE | 2017-05-17 12:11 | CODING QUERY NO DIAGNOSIS ---
TREATMENT RENDERED WITHOUT A DIAGNOSIS To promote full compliance with coding requirements relating to patient care, physician participation is requested in all cases of squaring shear operator uncertainty. Please assist us with providing a diagnosis/symptom for the test(s) below: A diagnosis/symptom was not documented on your Order. A valid diagnosis/symptom is required to bill all insurances. Please remember that we are unable to code a diagnosis of rule out, probable, possible, questionable, or suspected. DATE OF SERVICE: 05/14/17 Tests that require a diagnosis: * CBC W/AUTOMATED DIFFERENTIAL DIAGNOSIS: * B.U.N. DIAGNOSIS: * SGOT DIAGNOSIS: * ALKALINE PHOSPHATASE DIAGNOSIS: * CREATININE DIAGNOSIS: * BILIRUBIN, TOTAL DIAGNOSIS: * SGPT DIAGNOSIS: * BILIRUBIN DIRECT DIAGNOSIS: * PROTHROMBIN TIME DIAGNOSIS: Provider Signature: Date: Thank you [facility] Information Management Once completed, please kindly fax back to [phone] For questions please call [phone]
== END | disposition home or self-care (01) ==
LOC: C.LABSPEC 14:03
PROVIDERS: ATTEND Surgery
DX: Z95.828 Presence of other vascular implants and grafts (principal); Z95.2 Presence of prosthetic heart valve

== ENCOUNTER → 2017-05-17 | Outpatient (CLI) | payer OTHER ==
[2017-05-17 15:00] LABS: INR 2.1 (0.9-1.1)
== END | disposition home or self-care (01) ==
LOC: C.LABSPEC 14:39
PROVIDERS: ATTEND Surgery
DX: T81.4XXA Infection following a procedure, initial encounter (principal); Y84.9 Medical procedure, unspecified as the cause of abnormal reaction of the patient, or of later complication, without mention of misadventure at the time of the procedure; B95.4 Other streptococcus as the cause of diseases classified elsewhere; I33.0 Acute and subacute infective endocarditis; Z45.2 Encounter for adjustment and management of vascular access device; Z51.81 Encounter for therapeutic drug level monitoring; Z79.2 Long term (current) use of antibiotics; Z79.01 Long term (current) use of anticoagulants

== ENCOUNTER → 2017-05-21 | Outpatient (CLI) | payer OTHER ==
[2017-05-21 13:13] LABS: BASO % 1.1 %; BASO ABS # 0.08 K/uL (0-0.2); EOS % 6.2 %; EOS ABS # 0.46 K/uL (0-0.5); HEMATOCRIT 39.8 % (42-52); IG# 0.01 K/uL (0.00-0.02); LYMPH % 9.1 %; LYMPH ABS # 0.68 K/uL (1.2-3.4); MEAN CELL VOLUME 97.5 fL (80-100); MEAN CORPUSCULAR HEMOGLOBIN 31.9 pg (25-34); MEAN CORPUSCULAR HGB CONC 32.7 g/dl (32-36); MEAN PLATELET VOLUME 9.4 fL (7.4-10.4); MONO % 7.3 %; MONO ABS # 0.54 K/uL (0.11-0.59); NEUT % 76.2 %; NEUT ABS # 5.67 K/uL (1.4-6.5); PLATELET COUNT 333 K/uL (130-400); RED CELL DISTRIBUTION WIDTH CV 15.5 % (11.5-14.5); RED CELL DISTRIBUTION WIDTH SD 55.4 fL (36.4-46.3); WHITE BLOOD COUNT 7.44 K/uL (4.8-10.8)
[2017-05-21 13:19] LABS: INR 2.6 (0.9-1.1)
[2017-05-21 13:26] LABS: ALT/SGPT 41 U/L (12-78); AST/SGOT 22 U/L (15-37); BLOOD UREA NITROGEN 23 mg/dl (7-18); CALCIUM 8.5 mg/dl (8.5-10.1); CARBON DIOXIDE 26 mmol/L (21-32); CREATININE 1.08 mg/dl (0.60-1.40); GLUCOSE 120 mg/dl (70-99); POTASSIUM 3.8 mmol/L (3.5-5.1); SODIUM 137 mmol/L (136-145)
[2017-05-21 13:29] LABS: ALKALINE PHOSPHATASE 122 U/L (45-117)
--- NOTE | 2017-05-30 16:17 | CODING QUERY NO DIAGNOSIS ---
TREATMENT RENDERED WITHOUT A DIAGNOSIS : 61 To promote full compliance with coding requirements relating to patient care, physician participation is requested in all cases of appliance service technician uncertainty. Please assist us with providing a diagnosis/symptom for the test(s) below: A diagnosis/symptom was not documented on your Order. A valid diagnosis/symptom is required to bill all insurances. Please remember that we are unable to code a diagnosis of rule out, probable, possible, questionable, or suspected. Tests that require a diagnosis: DOS: 05/21/17 * ALKALINE PHOSPHATASE DIAGNOSIS: * ALT/SGPT DIAGNOSIS: * AST/SGOT DIAGNOSIS: * BILIRUBIN, TOTAL DIAGNOSIS: * PARTIAL RENAL PROFILE DIAGNOSIS: * CBC WITH AUTO DIFFER DIAGNOSIS: * PROTHROMBIN TIME PRO DIAGNOSIS: Provider Signature: Date: Thank you Ema Arciniega [facility] Information Management Once completed, please kindly fax back to [phone] For questions please call [phone]
== END | disposition home or self-care (01) ==
LOC: C.LABSPEC 12:28
PROVIDERS: ATTEND Surgery
DX: Z79.01 Long term (current) use of anticoagulants (principal); Z51.81 Encounter for therapeutic drug level monitoring

== ENCOUNTER → 2017-05-24 | Outpatient (CLI) | payer OTHER ==
[2017-05-24 12:17] LABS: INR 2.4 (0.9-1.1)
== END | disposition home or self-care (01) ==
LOC: C.LABSPEC 11:59
PROVIDERS: ATTEND Surgery
DX: Z79.82 Long term (current) use of aspirin (principal); Z79.01 Long term (current) use of anticoagulants; Z51.81 Encounter for therapeutic drug level monitoring

== ENCOUNTER → 2017-05-28 | Outpatient (CLI) | payer OTHER ==
[2017-05-28 12:43] LABS: BASO % 0.7 %; BASO ABS # 0.05 K/uL (0-0.2); EOS % 4.6 %; EOS ABS # 0.33 K/uL (0-0.5); HEMATOCRIT 39.7 % (42-52); HEMOGLOBIN 13.1 g/dL (14.0-18.0); IG# 0.03 K/uL (0.00-0.02); LYMPH % 12.8 %; LYMPH ABS # 0.92 K/uL (1.2-3.4); MEAN CELL VOLUME 96.8 fL (80-100); MEAN PLATELET VOLUME 9.7 fL (7.4-10.4); MONO % 8.8 %; MONO ABS # 0.63 K/uL (0.11-0.59); NEUT % 72.7 %; NEUT ABS # 5.22 K/uL (1.4-6.5); PLATELET COUNT 349 K/uL (130-400); RED CELL DISTRIBUTION WIDTH CV 14.8 % (11.5-14.5); RED CELL DISTRIBUTION WIDTH SD 52.9 fL (36.4-46.3); WHITE BLOOD COUNT 7.18 K/uL (4.8-10.8)
[2017-05-28 12:52] LABS: INR 2.3 (0.9-1.1)
[2017-05-28 15:46] LABS: ALT/SGPT 43 U/L (12-78); AST/SGOT 28 U/L (15-37); BLOOD UREA NITROGEN 22 mg/dl (7-18); CALCIUM 8.6 mg/dl (8.5-10.1); CARBON DIOXIDE 26 mmol/L (21-32); GLUCOSE 72 mg/dl (70-99); SODIUM 137 mmol/L (136-145)
[2017-05-28 15:48] LABS: ALKALINE PHOSPHATASE 115 U/L (45-117)
== END | disposition home or self-care (01) ==
LOC: C.LABSPEC 12:06
PROVIDERS: ATTEND Surgery
DX: Z79.2 Long term (current) use of antibiotics (principal); T81.4XXA Infection following a procedure, initial encounter; B95.4 Other streptococcus as the cause of diseases classified elsewhere; Z79.82 Long term (current) use of aspirin; I33.0 Acute and subacute infective endocarditis; Z51.81 Encounter for therapeutic drug level monitoring

== ENCOUNTER → 2017-05-31 | Outpatient (CLI) | payer OTHER ==
[2017-05-31 12:07] LABS: INR 2.2 (0.9-1.1)
== END | disposition home or self-care (01) ==
LOC: C.LABSPEC 11:36
PROVIDERS: ATTEND Surgery
DX: Z79.01 Long term (current) use of anticoagulants (principal); Z79.82 Long term (current) use of aspirin; I50.9 Heart failure, unspecified

== ENCOUNTER → 2017-06-04 | Outpatient (CLI) | payer OTHER ==
[~2017-06-04] MED LIST changes: +POTA-639 PO; -POTA20TA16 PO
[2017-06-04 12:19] LABS: BASO % 1.6 %; BASO ABS # 0.11 K/uL (0-0.2); EOS % 7.5 %; EOS ABS # 0.52 K/uL (0-0.5); HEMATOCRIT 41.2 % (42-52); HEMOGLOBIN 13.6 g/dL (14.0-18.0); IG# 0.03 K/uL (0.00-0.02); LYMPH % 14.2 %; LYMPH ABS # 0.98 K/uL (1.2-3.4); MEAN CELL VOLUME 96.3 fL (80-100); MEAN CORPUSCULAR HEMOGLOBIN 31.8 pg (25-34); MEAN PLATELET VOLUME 9.5 fL (7.4-10.4); MONO % 7.8 %; MONO ABS # 0.54 K/uL (0.11-0.59); NEUT % 68.5 %; NEUT ABS # 4.72 K/uL (1.4-6.5); PLATELET COUNT 319 K/uL (130-400); RED CELL DISTRIBUTION WIDTH CV 14.5 % (11.5-14.5); RED CELL DISTRIBUTION WIDTH SD 51.3 fL (36.4-46.3)
[2017-06-04 12:26] LABS: INR 2.1 (0.9-1.1)
[2017-06-04 12:47] LABS: ALT/SGPT 68 U/L (12-78); AST/SGOT 38 U/L (15-37); BLOOD UREA NITROGEN 18 mg/dl (7-18); CARBON DIOXIDE 28 mmol/L (21-32); CREATININE 1.02 mg/dl (0.60-1.40); SODIUM 138 mmol/L (136-145)
[2017-06-04 12:49] LABS: ALKALINE PHOSPHATASE 117 U/L (45-117)
== END | disposition home or self-care (01) ==
LOC: C.LABSPEC 12:00
PROVIDERS: ATTEND Surgery
DX: I33.0 Acute and subacute infective endocarditis (principal); I50.9 Heart failure, unspecified; Z79.82 Long term (current) use of aspirin; Z79.01 Long term (current) use of anticoagulants; Z51.81 Encounter for therapeutic drug level monitoring; Z79.2 Long term (current) use of antibiotics

== ENCOUNTER → 2017-06-07 | Outpatient (CLI) | payer OTHER ==
[2017-06-07 16:14] LABS: INR 1.9 (0.9-1.1)
== END | disposition home or self-care (01) ==
LOC: C.LABSPEC 15:37
PROVIDERS: ATTEND Surgery
DX: Z51.81 Encounter for therapeutic drug level monitoring (principal); Z75.2 Other waiting period for investigation and treatment; Z79.82 Long term (current) use of aspirin; Z79.01 Long term (current) use of anticoagulants

== ENCOUNTER → 2017-06-11 | Outpatient (CLI) | payer OTHER ==
[2017-06-11 13:10] LABS: BASO ABS # 0.07 K/uL (0-0.2); EOS % 7.3 %; EOS ABS # 0.52 K/uL (0-0.5); HEMATOCRIT 43.5 % (42-52); HEMOGLOBIN 14.4 g/dL (14.0-18.0); IG# 0.02 K/uL (0.00-0.02); LYMPH % 14.4 %; LYMPH ABS # 1.03 K/uL (1.2-3.4); MEAN CELL VOLUME 94.8 fL (80-100); MEAN CORPUSCULAR HEMOGLOBIN 31.4 pg (25-34); MEAN CORPUSCULAR HGB CONC 33.1 g/dl (32-36); MEAN PLATELET VOLUME 9.9 fL (7.4-10.4); MONO % 9.9 %; MONO ABS # 0.71 K/uL (0.11-0.59); NEUT % 67.1 %; NEUT ABS # 4.81 K/uL (1.4-6.5); PLATELET COUNT 312 K/uL (130-400); RED CELL DISTRIBUTION WIDTH SD 47.9 fL (36.4-46.3); WHITE BLOOD COUNT 7.16 K/uL (4.8-10.8)
[2017-06-11 13:15] LABS: INR 2.1 (0.9-1.1)
[2017-06-11 13:58] LABS: ALT/SGPT 60 U/L (12-78); AST/SGOT 33 U/L (15-37); BLOOD UREA NITROGEN 18 mg/dl (7-18); CARBON DIOXIDE 27 mmol/L (21-32); CREATININE 1.05 mg/dl (0.60-1.40); POTASSIUM 4.1 mmol/L (3.5-5.1); SODIUM 137 mmol/L (136-145)
[2017-06-11 14:01] LABS: ALKALINE PHOSPHATASE 102 U/L (45-117)
== END | disposition home or self-care (01) ==
LOC: C.LABSPEC 12:13
PROVIDERS: ATTEND Surgery
DX: T81.4XXA Infection following a procedure, initial encounter (principal); Y83.9 Surgical procedure, unspecified as the cause of abnormal reaction of the patient, or of later complication, without mention of misadventure at the time of the procedure; B95.4 Other streptococcus as the cause of diseases classified elsewhere; I33.0 Acute and subacute infective endocarditis; Z79.2 Long term (current) use of antibiotics; Z95.2 Presence of prosthetic heart valve; Z79.01 Long term (current) use of anticoagulants; Z79.82 Long term (current) use of aspirin

== ENCOUNTER → 2017-06-18 | Outpatient (CLI) | payer OTHER ==
[2017-06-18 13:22] LABS: INR 2.5 (0.9-1.1)
== END | disposition home or self-care (01) ==
LOC: C.LABSPEC 13:04
PROVIDERS: ATTEND Surgery
DX: Z51.81 Encounter for therapeutic drug level monitoring (principal); Z79.01 Long term (current) use of anticoagulants; Z79.82 Long term (current) use of aspirin; Z95.2 Presence of prosthetic heart valve